=== PATIENT | female | born 1950 | race Caucasian/White ===

== ENCOUNTER → 2024-04-23 10:03 | Outpatient (REF) | payer OTHER, SELFPAY | LOC: HWRCS 10:03 | PROVIDERS: ATTENDING PHYSICIAN Internal Medicine Cardiovascular Disease; FAMILY PHYSICIAN Family Medicine | DX: I50.20 Unspecified systolic (congestive) heart failure (principal) | CPT/HCPCS: 93306 ==

== ENCOUNTER → 2024-09-28 09:04 | Outpatient (REF) | payer OTHER, SELFPAY | LOC: HWRCS 09:04 | PROVIDERS: ATTENDING PHYSICIAN Nuclear Medicine Nuclear Cardiology; FAMILY PHYSICIAN Family Medicine | DX: I50.20 Unspecified systolic (congestive) heart failure (principal); I42.8 Other cardiomyopathies | CPT/HCPCS: 93306 ==

== ENCOUNTER 2024-12-12 20:45 | Inpatient (IN) | payer OTHER, SELFPAY ==
[2024-12-12] VITALS (13 sets, daily range): BP systolic 104–129; BP diastolic 78–102; BMI 27.9; BMI 28.7
[2024-12-12] MEDS: CARDIZEM 15 MG IV (18:15)
--- NOTE | 2024-12-12 18:15 | ED.GENMED ---
History of Present Illness
General
Chief Complaint: Breathing Problem
Source: patient
Time Seen by Provider: 12/12/24 18:03
History of Present Illness
History of Present Illness:
74-year-old female presents to the emergency room complaining of shortness of breath, dyspnea on exertion. Patient's been feeling increasing short of breath for the past 2 weeks. She is also noted some swelling in her lower extremities. Patient
was diagnosed with congestive heart failure in August 2023. She is concerned that her heart failure is acting up again. Patient denies chest pain or pressure. She denies any sense of a tachycardic rhythm. No fever or chills.
Past History
Past History
ED Past Medical History: Other (Hemochromatosis)
ED Past Surgical History: Other (Breast biopsy)
Social History
Tobacco: Non-smoker
Phy Exam
Physical Exam
Physical Exam:
General: Awake, Alert, Oriented X3. No acute distress.
Vitals: Tachycardic
Head: Atraumatic
Eyes: Pupils equal, EOMI
Throat: Airway intact, no exudates
Neck: Trachea midline
Lungs: Equal breath sounds bilaterally
Heart: Regular rate, no murmurs
Abd: Soft, Nontender, No pulsatile mass
Neuro: Nonfocal
Skin: Warm, dry, no rash
Extremities: pulses equal b/l, 1-2+ edema
Scores
Heart Failure Risk
Heart Failure Risk Score: Yes
History of Stroke or TIA: No
History of intubation for respiratory distress: No
Heart rate on ED arrival >/= 110: Yes
SaO2 <90% on arrival on room air: No
HR >/=110 during 3min walk test (or too ill to perform test): Yes
ECG has acute ischemic changes: No
Urea >/=12mmol/L (BUN 33.6mg/dL): No
Serum CO2>/=35mmol/L: No
Troponin I or T elevated to TN Level (0.4mg/dL): No
NT-proBNP >/=5,000ng/L (5,000pg/ml): Yes
HF Risk Score: 3
Admission Status: HIGH RISK 15.9% Consider SNF treatment or admission to hospital
Course
Orders/Labs/Results
Orders:
Orders
12/12/24 Dinner
Cholesterol Lowering
At Your Request: Full Participation
Does patient need a safe tray?: No
Fluid Restriction: 1500 mL/day (50 oz)
Cholesterol Lowering: Sodium, 2 Gram
12/12/24 17:40
Electrocardiogram (*1) Urgent
Reason for Study: Chest Pain
EKG- Treatment ONCE
12/12/24 18:08
Diltiazem 125 mg/125 ml Nss [Cardizem] 125 mg in 125 ml .ROUTE .STK-MED
Diltiazem HCl [Cardizem] 25 mg .ROUTE .STK-MED ONE
12/12/24 18:12
Diltiazem 125 mg/125 ml Nss [Cardizem] 125 mg in 125 ml IV NOW
Initial dose in mg/hr, then titrate:: 5
Titrate to keep:: Heart rate 80-100 bpm
Titrate by mg/hr:: 5 mg/hr
Frequency of titrations (minutes):: 15
Maximum dose in mg/hr:: 15
Diltiazem HCl [Cardizem] 15 mg IV NOW STA
12/12/24 18:13
Cardiac Monitoring- Treatment ONCE
CR Chest Portable - 1 View Urgent
Comment:
Reason For Exam: shortness of breath
Reason Study Needs to be Portable: Unable to Transport
12/12/24 18:20
Basic Metabolic Panel Urgent
Complete Blood Count/With Diff Urgent
NT-proBNP Urgent
12/12/24 18:55
Furosemide [Lasix] 40 mg IV NOW STA
12/12/24 20:12
Admit/Transfer Patient As Directed
Co-Sign Provider:
Level of Care: Inpatient admission
Assign to:: IVU
Physician / Group: hospitalist
Diagnosis: AFIB RVR
Reason for Hospitalization: AFIB RVR, heart failure
Expected length of stay greater than two midnights?: Yes
ELOS- Estimated Length of Stay in days: 2
I certify the patient meets the requirements for IP care: Yes
Code Status As Directed
Resuscitation Status: Do not resuscitate
Reached after discussion with pt or family/Healthcare POA: Yes
PRN Pain Medication Management As Directed
May give lesser potent ordered pain med per pt: Yes
preference::
Protocol:: Medication orders for pain may be administered in a
manner that supports deferring to patient preference
when the pt is:
- Requesting an ordered lesser potent pain medication.
Least to most potent pain medications are defined
as: acetaminophen < NSAID < tramadol < opioids
(morphine, oxycodone, hydromorphone).
- Requesting a lesser dose of the same medication IF
ORDERED.
- Requesting a less intrusive route of administration
if both routes are prescribed by the provider (PO <
IV).
12/12/24 20:13
DNR Bracelet Application ONCE
12/12/24 22:14
Acetaminophen [Tylenol] 650 mg PO Q6HPRN PRN
Diltiazem 125 mg/125 ml Nss [Cardizem] 125 mg in 125 ml IV PER PROTOCOL
Currently infusing. Continue current dose and titrate:: Yes
Titrate to keep:: Heart rate 80-100 bpm
Titrate by mg/hr:: 5 mg/hr
Frequency of titrations (minutes):: 15
Maximum dose in mg/hr:: 15
12/12/24 22:14
Echo 2D MMode Color/Doppler Routine
Reason for Study: heart failure
CARDIOLOGY CONSULT Routine
Consulting Provider: Colin Landaverde
Was physician already notified: Yes
Reason for consult: AFIB RVR
HF DIETARY CONSULT Routine
HF EDUCATOR CONSULT Routine
Comment:
Activity As Directed
Activity Level: With Assistance
Intake/ Output As Directed
Frequency: Per unit guidelines
Patient Education As Directed
Type: CHF folder
Comment: give on admission. Document in Interdisciplinary Education record
Sleep Apnea Assessment by RN As Directed
Comment:
Physician Instructions:
Vital Signs As Directed
Frequency: Other
Additional Instructions:: Q12 or per unit guidelines if more frequent.
Weight As Directed
Frequency: Daily
Type of Scale: Standing Scale
Comment: Daily morning weight. If unable to stand, use balanced bed scale.
Weight As Directed
Frequency: Once
Type of Scale: Standing Scale
Comment: Upon Admission. If unable to stand, use balanced bed scale.
Pulse Ox/cont/shift [RESP] Routine
Quantity: 1
Special Instructions: Daily pulse oximetry at rest. If greater than 92% at rest also obtain pulse oximetry
while ambulating as tolerated.
DX Deep Vein Thrombosis Video Routine
12/13/24 00:36
Basic Metabolic Panel IN AM
Cardiovascular Evaluation IN AM
Magnesium IN AM
TSH Reflex To Free T4 IN AM
12/13/24 Breakfast
NPO
Allow oral meds: Yes
Allow clear liquids: Sips of Clears
12/13/24 08:00
Furosemide [Lasix] 40 mg IV DAILY
12/13/24 18:00
Enoxaparin Sodium [Lovenox] 40 mg SC QPM
12/14/24 06:00
Basic Metabolic Panel IN AM
12/15/24 06:00
Basic Metabolic Panel IN AM
Abnormal Lab Results
12/12/24
18:20
WBC 12.1 H 10^3/uL
(4.8-10.8)
MCV 103.9 H fL
(81.0-99.0)
MCH 36.1 H pg
(27.0-31.0)
MPV 12.6 H fL
(7.4-10.4)
Abs Immat Gran (auto) 0.1 H 10^3/uL
(0-0.05)
Absolute Neuts (auto) 9.2 H 10^3/uL
(1.4-6.5)
Absolute Lymphs (auto) 1.1 L 10^3/uL
(1.2-3.4)
Absolute Monos (auto) 1.7 H 10^3/uL
(0.1-0.6)
Immature Gran % 0.6 H %
(0-0.5)
Neutrophils % 76.1 H %
(42.2-75.2)
Lymphocytes % 9.0 L %
(20.5-51.1)
Monocytes % 13.9 H %
(1.7-9.3)
Sodium 131 L mmol/L
(135-145)
Carbon Dioxide 18 L mmol/L
(22-30)
BUN 47 H mg/dl
(7-17)
Glucose 151 H mg/dl
(70-99)
12/12/24 18:20
12/12/24 18:20
Vital Signs
Initial and Last Documented VS:
Initial Vital Signs
Temp Pulse Resp BP Pulse Ox
97.7 F 76 18 124/91 98
12/12/24 17:46 12/12/24 17:46 12/12/24 17:46 12/12/24 17:46 12/12/24 17:46
Last Documented Vital Signs
Temp Pulse Resp BP Pulse Ox
98.2 F 109 20 129/93 95
12/12/24 22:06 12/12/24 23:30 12/12/24 22:06 12/12/24 22:05 12/12/24 22:06
MDM/Problems Addressed
Differential Diagnosis Includes:
CHF exacerbation, symptomatic anemia, dysrhythmia
MDM/Problems Addressed:
Patient presents with increased shortness of breath and peripheral edema. She is found to have a very rapid heart rate in triage and EKG shows atrial fibrillation. Cardizem started. Patient's not anticoagulated and therefore not a candidate for
cardioversion. Discussed the need for anticoagulation with the patient but she is adamant that she will not start anticoagulation. Hopefully cardiology can convince the patient to initiate anticoagulation. Given her history of heart failure with
reduced ejection fraction we will be a bit less aggressive with Cardizem. Patient was given a bolus and will just use a drip to help control heart rate. Case discussed with Dr. Landaverde.
*Radiology
Radiology exam reviewed: preliminary read by ED provider (No significant abnormality noted)
*Pulse Oximetry
Patient hypoxic: no
*EKG
Interpreted by ED Provider?: Yes
Interpretation: abnormal
Heart Rate: 168
Rate: tachycardiac
Rhythm: a-fib
Ischemia: ST depression (Laterally)
*Wet Finisher Wool Interpretation
Rate: tachycardiac
Interpretation: abnormal
Rhythm: a-fib
*Critical Care Note
Total Time (30-74mins, 75-104mins- exclusive of procedures): Not Applicable
Patient Management
Social determinants of health affecting care: Strong social support
Discussion with other providers: Hospitalist
ED Attending Note
-
Portions of this chart may have been created with voice recognition software.� Occasional wrong word or��sound alike� substitutions may have occurred due to the inherent limitations of voice recognition software.
Discharge Plan
Departure
Patient Disposition: Admit
Date of Disposition: 12/12/24
Time of Disposition: 18:55
Presentation/result/management discussed w/ accepting MD/DO: Hospitalist
Condition: Serious
Discharge Problem:
CHF (congestive heart failure), Atrial fibrillation with RVR
Interventions
Interventions:
*Risk Screen - Suicide Last Done: 12/12/24 17:46
*General Assessment Last Done: 12/12/24 18:24
*Neglect/Abuse Screening Last Done: 12/12/24 17:46
ED- Fall Risk Assessment Last Done: 12/12/24 18:24
*ED COVID-19 Vaccine History Last Done: 12/12/24 18:24
*Nursing Disposition Last Done: 12/12/24 21:50
ED- Cardiac Assessment Last Done: 12/12/24 21:06
ED- Pulmonary Assessment Last Done: 12/12/24 21:06
Discharge Date and Time
Discharge Date/Time: 12/12/24 21:50
[2024-12-12] MEDS: CARDIZEM 125 IV (18:17)
[2024-12-12 18:28] LABS: % Basophils 0.3 % (0-2); % Eosinophils 0.1 % (0-6); % Immature Granulocytes 0.6 % (0-0.5); % Monocytes 13.9 % (1.7-9.3); % Neutrophils 76.1 % (42.2-75.2); Absolute Immature Granulocytes 0.1 10^3/uL (0-0.05); Absolute Lymphocytes 1.1 10^3/uL (1.2-3.4); Absolute Monocytes 1.7 10^3/uL (0.1-0.6); Absolute Neutrophils 9.2 10^3/uL (1.4-6.5); Hematocrit 45.7 % (37.0-47.0); Hemoglobin 15.9 g/dL (12.0-16.0); Mean Corp Hgb Conc. 34.8 g/dL (33.0-37.0); Mean Corpuscular Hgb 36.1 pg (27.0-31.0); Mean Corpuscular Volume 103.9 fL (81.0-99.0); Mean Platelet Volume 12.6 fL (7.4-10.4); Nucleated Red Blood Cells % 0 %; Platelet Count 203 10^3/uL (130-400); Red Cell Dist. Width 13.4 % (11.5-14.5); White Blood Cell Count 12.1 10^3/uL (4.8-10.8)
[2024-12-12 18:46] LABS: Blood Urea Nitrogen 47 mg/dl (7-17); Calcium 9.3 mg/dl (8.4-10.2); Carbon Dioxide 18 mmol/L (22-30); Chloride 98 mmol/L (98-107); Estimated Creatinine Clearance 52 ml/min; Glucose 151 mg/dl (70-99); Sodium 131 mmol/L (135-145); eGFR 59.86
[2024-12-12 18:47] LABS: NT-proBNP 5890 pg/ml
[2024-12-12] MEDS: LASIX 40 MG IV (19:23)
--- NOTE | 2024-12-12 19:56 | HPS.HSE ---
Family Physician
-
Family Physician: Sathish Chapman
Chief Complaint
-
Shortness of breath
History of Present Illness
This is a 74-year-old female with past medical history significant for CHF with depressed EF, last echo around 30 to 35% who presents to the emergency department with approximately 10 days of worsening dyspnea on exertion and shortness of breath.
Patient reports that she follows with cardiology and last saw them in November 27. At that time everything appeared to be okay. However over the last 10 days she is reported that she did have mild increasing ankle edema, she said that weight was
stable but she has been having dyspnea on exertion and shortness of breath. Initially she thought that this may be related to some more fluid congestion. She took 40 mg of Lasix yesterday without more significant improvement. She was found to
have rapid atrial fibrillation in the ED. Patient denies any palpitations, racing heart, lightheadedness or dizziness.
She reported that she been instructed to take the low-dose Coreg but she stopped taking that since November 18. She said that the Coreg resulted in her heart rate that dipped to the 40s and ranges between 50-60. She states this makes her feel
unwell and she decided to discontinue the Coreg.
Patient denies any fevers or chills. She denies any cough. She denies any sick contacts.
In the emergency department she was afebrile with a temp of nine 7.7, the time I saw her blood pressure was 110/83 with a pulse of 140 she was satting 98% on room air. ECG showed atrial fibrillation at a rate of 168 with occasional PVCs. No acute
ischemia. BNP was elevated at 5800. Chest x-ray shows small right pleural effusion with some atelectasis. CBC was mostly unremarkable with a hemoglobin of 16, sodium was 131 BUN was elevated at 47 with a creatinine of 1.0. Potassium is pending.
Medical History
Past Medical History
Past Medical History: Reports CHF (Heart failure with reduced EF) and Other (Hemochromatosis)
Past Surgical History: Reports Other (Breast biopsy)
Social History
Tobacco: Former Smoker
Alcohol: Daily (2 glasses of wine)
Drug: None
Personal: Single
Living: Alone
Employment: Retired
Family History
Family History: Not pertinent
Allergies / Home Medications
Allergies reflects when Allergies were last updated in [facility].
Home Medications with original date entered in [facility]
Allergy/Medication List:
Allergies
Allergy/AdvReac Type Severity Reaction Status Date / Time
Tetracyclines Allergy Mild Rash Verified 12/12/24 17:46
Home Medications
furosemide 20 mg tablet 20 mg PO DAILY 30 days #30 tabs 08/27/23
coenzyme Q10 100 mg capsule (CoQ-10) 100 mg PO DAILY 12/12/24
furosemide 20 mg tablet 20 mg PO DAILYPRN PRN swelling 12/12/24
therapeutic multivitamin 1 tab PO DAILY 12/12/24
vitamin B complex 1 tab PO DAILY 12/12/24
Review of Systems
-
History Source: Patient
Constitutional: Reports No Symptoms
EENT: Reports No Symptoms
Respiratory: Reports Trouble Breathing
Cardiac: Reports No Symptoms
Abdomen/GI: Reports No Symptoms
: Reports No Symptoms
Musculoskeletal: Reports No Symptoms
Skin: Reports No Symptoms
Neurological: Reports No Symptoms
Endocrine: Reports No Symptoms
Hematologic/Lymphatic: Reports No Symptoms
Psych: Reports No Symptoms
Physical Exam
Vital Signs
Vital Signs
Temp Pulse Resp BP Pulse Ox
97.7 F 146 34 110/83 98
12/12/24 17:46 12/12/24 19:23 12/12/24 19:01 12/12/24 19:23 12/12/24 19:01
Physical Exam
General: Well Developed, Well Nourished, Comfortable and Conversant
HEENT: NormoCephalic, Anicteric, Moist mucous membranes, Atraumatic and PERRLA
Respiratory: Clear
Cardiac: S1/S2, Irregular Rhythm and Tachycardia
Breast: Deferred by me
GI: Soft, Non Tender, Non Distended and Normal Bowel Sounds
Rectal: Deferred by Provider
Genito-urinary: Deferred by me
Musculoskeletal: No Clubbing, No Cyanosis, Edema, Left Lower Extremity (1+) and Edema, Right Lower Extremity (1+)
Skin: Warm
Neuro: AO x 3 and Nonfocal/grossly intact
Hematologic/Lymphatic: No Lymphadenopathy
Psych: Calm
Laboratory Results
-
12/12/24 18:20
12/12/24 18:20
Data Reviewed
-
Diagnostic Radiology: Image Personally Visualized and interpreted and Report Reviewed by me
Medical Tests (Nuc Med, Echo, EKG etc): Image Personally Visualized and interpreted
Old Records: Reviewed
Impression/Plan
-
IMPRESSION:
74 y.o female with h/o CHF with reduced EF (s/p cath 2022 with NICM) and presenting with SOB x 10 days found to be in AFIB RVR with some CHF exacerbation.
PLAN:
1. New onset AFIB RVR - Rates initially in the 160s, on dilt gtt, now in the 130s. HD stable. Possibly due to stopping coreg.
- admit to ivu
- continue diltiazem for now but ideally needs beta blockade
- patient amenable to metoprolol succinate which can be started tomorrow
- possibly will need cardioversion in am, NPO after midnight
- [id number] = 3, should be on AC. Eliquis 5 bid recommended. Patient refused AC tonight. To discuss w/ cardiology
- check tsh Ft4
- cardiology consult to CBC
2. CHF exacerbation - Last EF 30 - 35% in september. Moderate exacerbation with mild volume overload.
- lasix 40mg iv daily for now
- GDMT with metop succinate and if BP allows ARNI + SGLT II inibition per cards and patient compliance
- daily weights and i/os
- fluid restriction
DVT PPX - lovenox sq pending initiation of AC
Code Status - DNR
--- NOTE | 2024-12-12 23:10 | PTCARENOTE ---
Received patient from ED @ 2200. Patient awake, oriented x3. Ambulated from stretcher to bed. Cardizem drip running through right AC @ 15 mg/hr. BP 129/93, Afib 150-110s, 95% on room air. Discussed plan of care for evening. Patient verbalized
understanding. Call santana within reach.
--- NOTE | 2024-12-12 23:12 | PTCARENOTE ---
During admission questions, patient had a 23 beat run of We[employer]. Patient was asymptomatic and talking during the run. Informed Kimi Rodas NP.
[2024-12-13] VITALS (7 sets, daily range): BP systolic 92–104; BP diastolic 58–78; BMI 28.5
[2024-12-13 00:58] LABS: Blood Urea Nitrogen 43 mg/dl (7-17); Calcium 8.9 mg/dl (8.4-10.2); Carbon Dioxide 19 mmol/L (22-30); Chloride 101 mmol/L (98-107); Estimated Creatinine Clearance 58 ml/min; Glucose 116 mg/dl (70-99); HDL Cholesterol 25 mg/dl; LDL Cholesterol, Calculated 120 mg/dl; Magnesium 2.2 mg/dl (1.6-2.3); Sodium 134 mmol/L (135-145); Total Cholesterol 168 mg/dl (50-199); Triglyceride 115 mg/dl (10-149); Very Low Density Lipoprotein 23 mg/dl (0-30); eGFR > 60.00
[2024-12-13 01:28] LABS: TSH Reflex To Free T4 2.79 uIU/ml (0.47-4.68)
[2024-12-13] MEDS: CARDIZEM 125 IV ×3 (02:42→18:09)
[2024-12-13] MEDS: LASIX 40 MG IV (09:31)
[2024-12-13] MEDS: FLUSH (NSS) 1 FLUSH IV (09:34)
--- NOTE | 2024-12-13 09:55 | CON.CAR ---
Consultation
Consultation Request
Date/Time Consultation Requested: December 13, 2024
Date/Time Consultation Performed: December 13, 2024
Requesting Provider: Hospitalist
Performing Provider: Dr. Colin Landaverde
Reason for Consultation: New onset atrial fibrillation with rapid rate and decomp HFrEF
Medical History
-
Chief Complaint: Shortness of breath and palpitations
History of Present Illness:
Primary care provider is Sathish Chapman
Primary band head saw operator is Dr Thompson Stewart (previously followed with [facility] Cardiology)
Her medical history is significant for heart failure with reduced ejection fraction, LVEF 30 to 35%, she presented to the emergency department with approximately 10 days of worsening dyspnea on exertion and shortness of breath. She presented on
December 12, 2024.
In the emergency department she is found to be in atrial fibrillation with rapid ventricular rates with a sensation of heart racing, dizziness at times and marked shortness of breath.
On presentation to the emergency department blood pressure is 110/83, heart rate 140 bpm and room air pulse ox is 98%
Electrocardiogram finds atrial fibrillation with a rapid ventricular rate of 168 bpm and occasional PVC as well as nonspecific ST and T wave abnormalities laterally. When compared to EKG of August 23, 2023 atrial fibrillation has replaced sinus
rhythm
BNP was elevated at 5800.
Chest x-ray shows small right pleural effusion with some atelectasis.
Cardiology is consulted for new diagnosis of atrial fibrillation which is also complicated by decompensated heart failure with reduced ejection fraction.
Past medical history:
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
Coronary angiography August 23, 2023 finds severe LV dysfunction with ejection fraction 30-35% and no significant coronary artery disease
Echocardiogram September 2024 finds LVEF 30 to 35% global hypokinesis, moderate mitral regurgitation and moderate tricuspid regurgitation
Moderate marked regurgitation
Moderate tricuspid regurgitation
Medical noncompliance
(Has refused carvedilol as well as Toprol-XL, has also refused Entresto)
Hemochromatosis
Dyslipidemia
Social History
Tobacco: Smoker (Quit in 1992)
Alcohol: Daily (2 glasses of wine daily)
Drug: None
Personal: Single
Living: Alone
Employment: Retired
Family History
Family History: Reviewed & Not Pertinent and Other (There is no family history of premature coronary artery disease)
Allergies / Home Medications
Allergy/AdvReac Type Severity Reaction Status Date / Time
Tetracyclines Allergy Mild Rash Verified 12/12/24 17:46
�Medication �Instructions �Recorded �Confirmed �Type
furosemide 20 mg tablet 20 mg PO DAILY 30 days #30 tabs 08/27/23 12/12/24 Rx
coenzyme Q10 100 mg capsule 100 mg PO DAILY 12/12/24 12/12/24 History
(CoQ-10)
furosemide 20 mg tablet 20 mg PO DAILYPRN PRN swelling 12/12/24 12/12/24 History
therapeutic multivitamin 1 tab PO DAILY Supplement 12/12/24 12/12/24 History
vitamin B complex 1 tab PO DAILY Supplement 12/12/24 12/12/24 History
Review of Systems
-
History Source: Patient
Constitutional: No Symptoms
EENT: No Symptoms
Respiratory: Trouble Breathing
Cardiac: Palpitations
Abdomen/GI: No Symptoms
: No Symptoms
Musculoskeletal: No Symptoms
Skin: No Symptoms
Neurological: Dizzy
Endocrine: No Symptoms
Hematologic/Lymphatic: No Symptoms
Physical Exam
Vital Signs
Temp Pulse Resp BP Pulse Ox
98.4 F 121 16 102/63 97
12/13/24 06:24 12/13/24 09:31 12/13/24 06:24 12/13/24 09:31 12/13/24 06:24
Lab Results
12/12/24 18:20
12/13/24 00:36
[id number] Pept 5890 pg/ml 12/12/24 18:20
Physical Exam
General: Well Developed, Well Nourished, No Apparent Distress and Comfortable
HEENT: Normocephalic, Anicteric and Moist Mucous Membranes
Respiratory: Clear and Non Labored Respirations
Cardiac: S1/S2 and Irregular Rhythm (TACHYACRDIC)
Breast: Deferred by me
GI: Soft, Non Tender, Non Distended and Normal Bowel Sounds
Rectal: Deferred by Provider
Musculoskeletal: No Clubbing, No Cyanosis and Edema (+1 pretibial edema bilaterally)
Skin: Warm
Neuro: Awake, Alert, Oriented, AO x 3 and No Motor Deficits
Psych: Calm
Impression / Plan
-
Assessment:
Atrial fibrillation with rapid ventricular rates, atrial fibrillation is a new diagnosis
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
Coronary angiography August 23, 2023 finds severe LV dysfunction with ejection fraction 30-35% and no significant coronary artery disease
Echocardiogram September 2024 finds LVEF 30 to 35% global hypokinesis, moderate mitral regurgitation and moderate tricuspid regurgitation
Moderate marked regurgitation
Moderate tricuspid regurgitation
Medical noncompliance
(Has refused carvedilol as well as Toprol-XL, has also refused Entresto)
Hemochromatosis
Dyslipidemia
Recommendations:
Atrial fibrillation
This is a new diagnosis for her
Rapid ventricular rates on presentation
Associated with decompensated heart failure with reduced ejection fraction on presentation
TSH is normal at 2.79
CHADSVASc = 4 (CHF, Age, F)
I had a lengthy discussion with her regarding the importance of medical compliance with recommended medical therapy.
-She now agrees to initiate oral anticoagulation for atrial fibrillation related thromboembolic risk reduction and she agrees to reattempt beta-chapincito therapy (refuses Coreg but except Toprol)
Will initiate Eliquis 5 mg twice daily
Will initiate Toprol XL 25 mg p.o. twice daily and attempt to wean IV Cardizem for rate control
Heart failure with reduced ejection fraction
Etiology is noninfarct cardiomyopathy
Coronary angiography August 23, 2023 finds severe LV dysfunction with ejection fraction 30-35% and no significant coronary artery disease
Echocardiogram September 2024 finds LVEF 30 to 35% global hypokinesis, moderate mitral regurgitation and moderate tricuspid regurgitation
Moderate marked regurgitation
Moderate tricuspid regurgitation
I had a lengthy discussion with her regarding the importance of medical compliance with recommended medical therapy.
Initiating Toprol-XL 25 mg p.o. twice daily, she refuses carvedilol
She refuses Entresto but excepts an attempt at lisinopril. Will initiate lisinopril 5 mg daily
Eventual consideration to add aldosterone antagonist
Medical noncompliance
She has refused multiple attempts at medical therapy as noted above but today she reports she will be compliant with recommendations.
Hemochromatosis
Dyslipidemia
Total cholesterol is 168, LDL cholesterol is 120, HDL cholesterol is 25, triglycerides are 115
Discussed with nursing
Total time 80 min
Data Reviewed
-
EKG: Tracing Personally Visualized and interpreted
Radiology: Image Personally Visualized and interpreted
Medical Tests (Nuc Med, Echo etc): Report Reviewed by me
Labs: Labs Reviewed by me
Old Records: Reviewed
--- NOTE | 2024-12-13 10:20 | W.PN.HOSP.TC ---
Today's Communication/Plan
-
NPO post MN if CRISTIAN CV planned
Assessment / Plan
Assessment / Plan
pt is a 74 year old female
New onset AFIB RVR--likely from stopping her coreg (self stopping) due to making her tired with low heart rates-- now in rapid afib on cardizem drip--apprec cards--pt refusing anticoagulation despite myself telling her about the risk of stroke--will
defer to cards CRISTIAN with CV christ if not anticoagulated (unclear how long she truly has been in this because she is not sure if she feels it)--TSH WNL
acute reduced EF CHF exacerbation--last echo 09/2024 showed EF 30-35%--agree with IV lasix, goal directed therapy if pt will take--daily I/Os--2gm sodium diet with fluid restriction to 48 oz/day
DVT proph
Code Status - DNR
Anticipated Discharge: 24 - 48 hours
Subjective/Interval History
-
Date of Service: December 13, 2024
pt SOB and tired
Objective Data
-
Labs:
Laboratory Results
12/13/24
00:36
Sodium 134 L
Potassium 4.0
Chloride 101
Carbon Dioxide 19 L
BUN 43 H
Creatinine 0.9
Glucose 116 H
Calcium 8.9
Vital Signs:
max temp for 24 hours
12/13/24
06:24
Temp 98.4 F
Vital Signs
Temp Pulse Resp BP Pulse Ox
98.4 F 121 16 102/63 97
12/13/24 06:24 12/13/24 09:31 12/13/24 06:24 12/13/24 09:31 12/13/24 06:24
Review of Systems
-
All other systems: Reviewed and negative
Physical Exam
-
General: Well Developed, Well Nourished and No Apparent Distress
HEENT: Normocephalic and Atraumatic
Respiratory: Clear to Auscultation; Negative Wheezes or Rhonchi
Cardiac: Irregular Rhythm and Tachycardic
GI: Soft, Nontender, Nondistended and Normal Bowel Sounds
Musculoskeletal: No Clubbing, No Cyanosis and No Edema
Neuro: Awake
Psych: Calm
[2024-12-13] MEDS: TOPROL XL 25 MG PO ×2 (11:40→23:26)
[2024-12-13] MEDS: ZESTRIL 5 MG PO (11:41)
--- NOTE | 2024-12-13 12:34 | PTCARENOTE ---
HR remains in the 100's, unable to wean IV cardizem gtt. as per ordered.
--- NOTE | 2024-12-13 12:52 | PTCARENOTE ---
Received patient this am in bed, monitor on, Afib, VSS. IV Cardizem @15cc/hr. Dr. Scanlon and Dr. Landaverde in to see patient. patient has agreed to take Eliquis, will start tonight as ordered. will start to wean off IV Cardizem as per Dr.
Akhil for HR <90. at present unable to titrate due to HR in the 100's.
--- NOTE | 2024-12-13 19:53 | PTCARENOTE ---
Assumed care of pt at 1900. Pt in Afib- HR 109. Cardizem remains at 15mg/hr. Pt BP stable. Instructed pt to ring for assistance.
[2024-12-13] MEDS: ELIQUIS 5 MG PO (22:12)
--- NOTE | 2024-12-13 22:21 | PTCARENOTE ---
TT sent to MIKE Rodas regarding pt BP of 92/58. Pt due for toprol XL. Advised to recheck BP in one hour.
[2024-12-14] VITALS (10 sets, daily range): BP systolic 94–118; BP diastolic 52–89; BMI 28.4
[2024-12-14 04:31] LABS: Hematocrit 39.4 % (37.0-47.0); Hemoglobin 14.3 g/dL (12.0-16.0); Mean Corp Hgb Conc. 36.3 g/dL (33.0-37.0); Mean Corpuscular Hgb 36.2 pg (27.0-31.0); Mean Corpuscular Volume 99.7 fL (81.0-99.0); Mean Platelet Volume 12.3 fL (7.4-10.4); Platelet Count 139 10^3/uL (130-400); Red Blood Cell Count 3.95 10^6/uL (4.20-5.40); Red Cell Dist. Width 13.2 % (11.5-14.5); White Blood Cell Count 9.7 10^3/uL (4.8-10.8)
[2024-12-14 05:05] LABS: Blood Urea Nitrogen 34 mg/dl (7-17); Calcium 8.5 mg/dl (8.4-10.2); Carbon Dioxide 19 mmol/L (22-30); Chloride 102 mmol/L (98-107); Estimated Creatinine Clearance 75 ml/min; Glucose 97 mg/dl (70-99); Magnesium 2.3 mg/dl (1.6-2.3); Potassium 3.5 mmol/L (3.5-5.1); Sodium 131 mmol/L (135-145); eGFR > 60.00
[2024-12-14] MEDS: CARDIZEM 125 IV ×2 (06:09→14:30)
--- NOTE | 2024-12-14 08:34 | W.PN.CARDCBS ---
Addendum entered and electronically signed by Thompson Stewart DO 12/14/24 12:09:
I saw and examined the patient.
The Ict Developer's note was reviewed and I agree with the note.
Comment:
Plan:
Cont IV diuresis and increase to lasix 40 mg IV BID.
Monitor wt and Is and Os and daily wts.
She declines Coreg
She decline Entresto but was agreeable to Lisinopril.
Check echo to reeval EF
Increase Toprol to 50 mg BID and wean off IV Cardizem
She is agreeable to Eliquis.
Consider outpt cardioversion after at least 4 weeks of Eliquis
She has a long hx of noncompliance and would want to make sure that she is tolerating her medical regimen prior to cardioversion.
HF teaching
She was appreciative.
Original Note:
Today's Communication / Plan
-
-uptitrate Toprol for rate control
-wean off Cardizem
-cont IV diuresis
Impression / Plan
-
Assessment:
Atrial fibrillation with rapid ventricular rates, atrial fibrillation is a new diagnosis
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
Coronary angiography August 23, 2023 finds severe LV dysfunction with ejection fraction 30-35% and no significant coronary artery disease
Echocardiogram September 2024 finds LVEF 30 to 35% global hypokinesis, moderate mitral regurgitation and moderate tricuspid regurgitation
Moderate marked regurgitation
Moderate tricuspid regurgitation
Medical noncompliance
(Has refused carvedilol as well as Toprol-XL, has also refused Entresto)
Hemochromatosis
Dyslipidemia
Recommendations:
Atrial fibrillation
This is a new diagnosis for her
Rapid ventricular rates on presentation, 160s.
telemetry 12/14/2024 personally reviewed: afib 100-120s
Associated with decompensated heart failure with reduced ejection fraction on presentation
TSH is normal at 2.79
CHADSVASc = 4 (CHF, Age, F)
multiple discussions with her regarding the importance of medical compliance with recommended medical therapy.
-She agrees to initiate oral anticoagulation for atrial fibrillation related thromboembolic risk reduction and she agrees to reattempt beta-chapincito therapy (refuses Coreg but will try Toprol)
-cont Eliquis 5 mg twice daily
-increase Toprol XL 50 mg p.o. twice daily and attempt to wean IV Cardizem for rate control-I ordered toprol
-would not consider a cardioversion unless we are confident that she would be compliant with taking Eliqius for at least 4 weeks post cardioversion.
Heart failure with reduced ejection fraction
Etiology is noninfarct cardiomyopathy
Coronary angiography August 23, 2023 finds severe LV dysfunction with ejection fraction 30-35% and no significant coronary artery disease
Echocardiogram September 2024 finds LVEF 30 to 35% global hypokinesis, moderate mitral regurgitation and moderate tricuspid regurgitation
Moderate marked regurgitation
Moderate tricuspid regurgitation
Initiated Toprol-XL yesterday 12/13/2024. Uptitrating for better rate control. Declines Coreg
She refuses Entresto but accepts an attempt at lisinopril. On lisinopril 5 mg daily
Eventual consideration to add aldosterone antagonist
continue IV diuresis, no change in wt overnight
K 3.5 - replete with KCl 20 meq
Na 131. Has ranged 131-134 since admission
Medical noncompliance
She has refused multiple attempts at medical therapy as noted above but today she reports she will be compliant with recommendations.
Hemochromatosis
Dyslipidemia
Total cholesterol is 168, LDL cholesterol is 120, HDL cholesterol is 25, triglycerides are 115
Discussed with nursing
Total time 40 min
Progress Note - Paper Rewinder
Subjective
Date of Service: December 14, 2024
-feels tired, achy
-no palps, SOB, CP
Objective
Labs:
12/14/24 04:05
12/14/24 04:05
Labs
Hgb 14.3 g/dL (12.0-16.0) 12/14/24 04:05
Hct 39.4 % (37.0-47.0) 12/14/24 04:05
Plt Count 139 10^3/uL (130-400) D 12/14/24 04:05
Sodium 131 mmol/L (135-145) L 12/14/24 04:05
Potassium 3.5 mmol/L (3.5-5.1) 12/14/24 04:05
BUN 34 mg/dl (7-17) H 12/14/24 04:05
Creatinine 0.7 mg/dL (0.6-1.0) 12/14/24 04:05
Glucose 97 mg/dl (70-99) 12/14/24 04:05
Vital Signs and I&O:
Vital Signs
Temp Pulse Resp BP Pulse Ox
98.7 F 119 16 118/78 96
12/14/24 07:39 12/14/24 07:39 12/14/24 07:39 12/14/24 07:39 12/14/24 07:39
Vital Signs
Temp Pulse Resp BP Pulse Ox
98.7 F 119 16 118/78 96
12/14/24 07:39 12/14/24 07:39 12/14/24 07:39 12/14/24 07:39 12/14/24 07:39
Intake & Output
12/12/24 12/13/24 12/14/24 12/15/24
06:59 06:59 06:59 06:59
Intake Total 180 / 180
Balance 180 / 180
Physical Exam
Physical Exam
GEN: No distress, awake, Ox3
HEENT: supple, anicteric, mmm
LUNGS: CTA, no wheezes/rales
CV: irreg, irreg , 1/6 systolic murmur apex
ABD: soft, BS+, NT/ND
EXT: trace edema B/L LEs
NEURO: Gross non-focal
SKIN: No rash
[2024-12-14] MEDS: ELIQUIS 5 MG PO ×2 (08:57→20:16)
[2024-12-14] MEDS: ZESTRIL 5 MG PO (08:57)
[2024-12-14] MEDS: TOPROL XL 25 MG PO (08:57)
[2024-12-14] MEDS: LASIX 40 MG IV ×2 (08:58→16:34)
[2024-12-14] MEDS: KCL 20 MEQ PO (10:24)
--- NOTE | 2024-12-14 10:31 | CM ---
Reviewed chart. Met with Mrs. Silva to review discharge plans. She states prior to admission she resides alone in a third floor apartment with an elevator. She resides in a [place] al[place] community. She states prior to admission she was
independent with ambulation and adls. She states she does not have any DME in the home. She states she has a prescription plan and uses a [facility]. Medical work-up in progress. The discharge plan is to return home when medically stable.
--- NOTE | 2024-12-14 10:40 | PTCARENOTE ---
received patient this am, monitor shows Afib, VSS. IV Cardizem @ 10cc/hr infusing without difficulties. K 3.5, supplemented as ordered.
--- NOTE | 2024-12-14 14:44 | W.PN.HOSP.TC ---
Today's Communication/Plan
-
cont diuresis
apprec cards
Assessment / Plan
Assessment / Plan
pt is a 74 year old female
New onset AFIB RVR--likely from stopping her coreg (self stopping) due to making her tired with low heart rates-- now in rapid afib on cardizem drip--apprec cards--after speaking with cardiology, she is agreeable to Elimatteo Toprol XL and
lisinopril- CRISTIAN with CV in 4 weeks now --TSH WNL
acute reduced EF CHF exacerbation (systolic)--last echo 09/2024 showed EF 30-35%--agree with IV lasix, goal directed therapy--daily I/Os--2gm sodium diet with fluid restriction to 48 oz/day
DVT proph
Code Status - DNR
Anticipated Discharge: 24 - 48 hours
Subjective/Interval History
-
Date of Service: December 14, 2024
pt without c/o
Objective Data
-
Labs:
Laboratory Results
12/14/24
04:05
WBC 9.7
Hgb 14.3
Hct 39.4
Plt Count 139 D
Sodium 131 L
Potassium 3.5
Chloride 102
Carbon Dioxide 19 L
BUN 34 H
Creatinine 0.7
Glucose 97
Calcium 8.5
Vital Signs:
max temp for 24 hours
12/14/24
07:39
Temp 98.7 F
Vital Signs
Temp Pulse Resp BP Pulse Ox
98.1 F 107 16 110/78 96
12/14/24 12:44 12/14/24 08:58 12/14/24 12:44 12/14/24 08:58 12/14/24 12:44
I&O
12/13/24 12/14/24 12/15/24
06:59 06:59 06:59
Intake Total 180 / 180
Balance 180 / 180
Review of Systems
-
All other systems: Reviewed and negative
Physical Exam
-
General: Well Developed, Well Nourished and No Apparent Distress
HEENT: Normocephalic and Atraumatic
Respiratory: Clear to Auscultation; Negative Wheezes or Rhonchi
Cardiac: Regular Rhythm and S1/S2; Negative Murmur
GI: Soft, Nontender, Nondistended and Normal Bowel Sounds
Musculoskeletal: No Clubbing and No Cyanosis; Negative No Edema (1+ LE bilateral LE)
Neuro: Awake
[2024-12-14] MEDS: FLUSH (NSS) 1 FLUSH IV (16:36)
[2024-12-14] MEDS: TOPROL XL 50 MG PO (20:16)
[2024-12-15] VITALS (9 sets, daily range): BP systolic 91–113; BP diastolic 63–97; BMI 28.1
--- NOTE | 2024-12-15 05:06 | PTCARENOTE ---
Rec'd pt at change of shift. Pt in Afib on TELE monitor with HR 100-110's, VSS, and AAO*3. Pt denies having any pain or discomfort. Pt with Cardizem infusing at 10mg/10mL per hour. Pt currently resting with call santana in reach. Plan of care
ongoing.
[2024-12-15 05:27] LABS: Blood Urea Nitrogen 23 mg/dl (7-17); Calcium 8.3 mg/dl (8.4-10.2); Carbon Dioxide 26 mmol/L (22-30); Chloride 97 mmol/L (98-107); Estimated Creatinine Clearance 74 ml/min; Glucose 103 mg/dl (70-99); Magnesium 1.9 mg/dl (1.6-2.3); Sodium 132 mmol/L (135-145); eGFR > 60.00
[2024-12-15] MEDS: ZESTRIL 5 MG PO (08:06)
[2024-12-15] MEDS: ELIQUIS 5 MG PO ×2 (08:07→20:13)
[2024-12-15] MEDS: TOPROL XL 50 MG PO ×2 (08:07→20:13)
[2024-12-15] MEDS: LASIX 40 MG IV ×2 (08:07→15:58)
[2024-12-15] MEDS: FLUSH (NSS) 1 FLUSH IV ×2 (08:08→15:59)
--- NOTE | 2024-12-15 10:46 | PTCARENOTE ---
received patient this am, monitor shows Afib , HR 130's, Nevin SHARP aware. VSS. patient voices no complaints. discussed plan of care.
--- NOTE | 2024-12-15 10:52 | W.PN.CARDCBS ---
Addendum entered and electronically signed by Josue Perez MD 12/15/24 15:18:
I saw and examined the patient.
The Code Enforcement Supervisor's note was reviewed and I agree with the note.
Comment: Briefly, 74-year-old woman past medical history of heart failure with reduced ejection fraction, nonischemic cardiomyopathy, severe mitral regurgitation who presents in atrial fibrillation with rapid ventricular response (this is a new
diagnosis) and decompensated heart failure
By echo this admission left ventricular function is severely reduced with an LVEF of 15%
Agree with continuing IV diuresis to optimize her volume status
Follow daily weights and renal function/electrolytes
Remains in atrial fibrillation with rates difficult to control
Continue metoprolol for goal heart rate less than 110 bpm, will uptitrate cautiously given acute heart failure
Consider adding amiodarone for additional rate control
Would likely benefit from CRISTIAN/direct-current cardioversion prior to discharge
Continue Eliquis for cardioembolic prophylaxis
Rest per Nevin Maher
Original Note:
Today's Communication / Plan
-
Continue IV diuresis
Increase Toprol for improved rate control. If remains refractory, would consider addition of antiarrhythmic drug therapy
Given worsened nonischemic cardiomyopathy, suspect will not do well in A-fib. Would favor inpatient CRISTIAN/cardioversion later this week. Patient reports will be compliant with anticoagulation
We will be able to evaluate degree of mitral valve disease with CRISTIAN. May need evaluation for mitral valve intervention
GDMT of CM as able
Impression / Plan
-
Primary Train Clerk: Dr. Stewart
Assessment:
Shortness of breath
Atrial fibrillation with rapid ventricular rates, new diagnosis
Acute HFrEF
Nonischemic cardiomyopathy - no significant CAD by cath 08/23/23
EF by echo previously 30-35%, now 15%
Severe mitral regurgitation
Moderate tricuspid regurgitation
Medical noncompliance
(Has refused carvedilol as well as Entresto)
Hemochromatosis
Dyslipidemia
ECHO 04/23/2024: EF 40 to 45%, mildly dilated LV, stage II diastolic dysfunction, moderate MR, mild TR, mildly elevated PASP, 39 mmHg
ECHO 09/28/24: EF 30 to 35%, global hypokinesis, mild concentric LVH, stage II diastolic dysfunction, at least moderate MR, mild to moderate TR, PAP 50 mmHg
ECHO 12/14/2024: EF 15%, severe global hypokinesis, MAC with severe MR with possible flow reversal in left pulmonary vein, trace AR, severe TR, PAP 28 mmHg, moderately dilated RA
Recommendations:
-Patient presented with shortness of breath found to be in A-fib with RVR as well as with evidence of acute CHF
-A-fib new diagnosis for patient this admission. Possibly MR contributing.
-Remains with evidence of volume overload on examination. Continue IV Lasix 40 mg twice daily. Creatinine stable. Remains with conversational dyspnea and dry cough
-Had ada conversation with patient today regarding her significant cardiac issues including worsening nonischemic cardiomyopathy, heart failure, new A-fib with difficult to control heart rates, and valvular disease. We discussed that her valve
disease, if progressing, could be causing worsening nonischemic cardiomyopathy, heart failure, and A-fib. We discussed if A-fib is due to mitral valve disease, may prove difficult to control with rate control only.
-Have been attempting to rate control patient due to history of noncompliance, however she remains in A-fib with RVR. Will increase Toprol dose to 75 mg twice daily today and follow response. If she remains rapid later today versus in a.m., would
consider addition of antiarrhythmic drug therapy.
-Given worsening cardiomyopathy, suspected in part tachycardia mediated, suspect will not do well in A-fib. Would favor inpatient CRISTIAN/cardioversion not only to restore sinus rhythm, however also to further evaluate mitral valve once diuresed.
Would consider for later this week pending volume status
-Discussed pending severity of mitral valve disease, will need evaluation for mitral valve repair/replacement versus alternative option of MitraClip.
-We discussed importance of compliance with medications and follow-up. Specifically discussed if patient did get cardioverted, would need uninterrupted blood thinner for 1 month. She states that she is agreeable to take this and understands the
risk of stopping this medicine
-She refused Coreg and Entresto. Continue Toprol, lisinopril. Will have case management assess cost to patient of [place]. Currently hypotension limits addition of Aldactone at this time
-Discussed with nursing
Progress Note - Train Clerk
Subjective
Date of Service: December 15, 2024
Reports feels tired. Also reports dry cough and conversational dyspnea. Reports improving lower extremity edema
Objective
Labs:
12/14/24 04:05
12/15/24 04:21
Labs
Hgb 14.3 g/dL (12.0-16.0) 12/14/24 04:05
Hct 39.4 % (37.0-47.0) 12/14/24 04:05
Plt Count 139 10^3/uL (130-400) D 12/14/24 04:05
Sodium 132 mmol/L (135-145) L 12/15/24 04:21
Potassium 4.0 mmol/L (3.5-5.1) 12/15/24 04:21
BUN 23 mg/dl (7-17) H 12/15/24 04:21
Creatinine 0.7 mg/dL (0.6-1.0) 12/15/24 04:21
Glucose 103 mg/dl (70-99) H 12/15/24 04:21
Vital Signs and I&O:
Vital Signs
Temp Pulse Resp BP Pulse Ox
97.8 F 119 18 103/69 96
12/15/24 07:10 12/15/24 10:00 12/15/24 07:10 12/15/24 08:07 12/15/24 07:10
Vital Signs
Temp Pulse Resp BP Pulse Ox
97.8 F 119 18 103/69 96
12/15/24 07:10 12/15/24 10:00 12/15/24 07:10 12/15/24 08:07 12/15/24 07:10
Intake & Output
12/13/24 12/14/24 12/15/24 12/16/24
07:59 07:59 07:59 07:59
Intake Total 180 / 180 600 / 600
Output Total 1000 / 1000 200 / 200
Balance 180 / 180 -400 / -400 -200 / -200
Physical Exam
Physical Exam
GEN: No distress, awake, alert, oriented x3
HEENT: supple, anicteric, mmm, eomi
LUNGS: Few crackles at bases, no wheezes
CV: Irreg irreg, S1/S2, 2/6 murmur
ABD: soft, BS+, NT/ND
EXT: No cyanosis, clubbing. 1+ edema of B/L LE
NEURO: Gross non-focal
SKIN: Warm, pink, dry. No rash
[2024-12-15] MEDS: TOPROL XL 25 MG PO (12:01)
--- NOTE | 2024-12-15 12:34 | W.PN.HOSP.TC ---
Today's Communication/Plan
-
see A/P
Assessment / Plan
Assessment / Plan
A/P:
# New onset AFIB with RVR, likely from stopping her coreg (self stopping) due to coreg making her tired with low heart rates
TSH WNL at 2.79
off cardizem drip, now on Toprol 75 mg BID
Cont Eliquis 5 mg BID
apprec cards
to consider CRISTIAN with CV if rate not controlled
# acute systolic CHF with reduced EF
Echo this admission 12/14: EF 15% visually. Diastolic function indeterminate. Severe mitral regurgitation with possible flow reversal in left pulmonary vein.
Cont IV lasix, now 40 mg BID
daily I/Os, 2gm sodium diet with fluid restriction to 48 oz/day
Lisinopril 5 mg daily added for LINING PARTS SEWER with low EF
DVT proph: Eliquis
Code Status - DNR
Anticipated Discharge: > 48 hours
Subjective/Interval History
-
Date of Service: December 15, 2024
Objective Data
-
Labs:
Laboratory Results
12/15/24
04:21
Sodium 132 L
Potassium 4.0
Chloride 97 L
Carbon Dioxide 26
BUN 23 H
Creatinine 0.7
Glucose 103 H
Calcium 8.3 L
Vital Signs:
Vital Signs
Temp Pulse Resp BP Pulse Ox
36.3 C 138 18 113/97 98
12/15/24 12:00 12/15/24 12:01 12/15/24 12:00 12/15/24 12:01 12/15/24 12:00
I&O
12/14/24 12/15/24 12/16/24
06:59 06:59 06:59
Intake Total 180 / 180 600 / 600
Output Total 1000 / 1000 200 / 200
Balance 180 / 180 -400 / -400 -200 / -200
Review of Systems
-
All other systems: Reviewed and negative
Physical Exam
-
General: Well Developed, Well Nourished, No Apparent Distress, Comfortable and Conversant
HEENT: Normocephalic and Atraumatic
Respiratory: Clear to Auscultation and Non Labored Respirations; Negative Wheezes, Rhonchi or Accessory Resp Muscle Use
Cardiac: S1/S2, Irregular Rhythm and Tachycardic; Negative Murmur
GI: Soft, Nontender, Nondistended and Normal Bowel Sounds
Musculoskeletal: No Clubbing and No Cyanosis
Neuro: Awake and Alert
Psych: Calm and Intact Judgement/Insight
Data Reviewed
-
Medical Tests (Nuc Med, Echo etc): Report Reviewed by me (echo)
Labs: Labs Reviewed by me
--- NOTE | 2024-12-15 15:33 | CM ---
Reviewed chart. Asked to du Farxiga and Eliquis. He co-pay for Farxiga 10 mg once a day would be 440.81 mad Eliquis 5 mg po bid is $409.25. She would have to pay garduno du until she gets to $2000.00 out of pocket. Once she gets to $2000.00 her
medications would be free. Reviewed about with Mrs. Silva. She is agreeable to the co-pay. Prior to admission she resides alone in a third floor apartment with an elevator. Prior to admission she waas independent with ambulation and adls.
She does not have any DME in the home. She hsa a prescription plan and uses [facility]. Medical work-up in progress. The discharge plan is to retrun home when medically stable.
--- NOTE | 2024-12-15 16:38 | W.PN.UPDATE ---
Update Note
Progress Note Update
Patient remains with rapid rates in atrial fibrillation. Discussed with patient starting amiodarone therapy. She remains concerned about the number of medication she is being started on. We discussed the benefit to the medicine she has been
started on thus far (toprol, lisinopril), as well as the medications we hope to start prior to discharge (Farxiga and Aldactone). We discussed that these medications are ideally not lifelong, however are necessary for now. We discussed that she
has multiple significant cardiac conditions, and she expressed understanding of this. We discussed she likely will not be able to tolerate a heart rate of 140 for a prolonged period of time. We discussed need for amiodarone in order to attempt to
re-establish and then maintain sinus rhythm in addition to CRISTIAN/cardioversion. We discussed IF her A-fib, heart failure, cardiomyopathy are all ultimately stemming from her mitral valve disease, recommendation would be for CT surgery eval/mitral
valve intervention. Await results of CRISTIAN. She is agreeable to initiation of amiodarone 400 mg 3 times daily. Follow QTc. Will plan for CRISTIAN/CV tentatively 12/17. d/w nursing.
[2024-12-15] MEDS: PACERONE 400 MG PO ×2 (16:41→22:16)
[2024-12-16] VITALS (11 sets, daily range): BP systolic 83–122; BP diastolic 62–79; BMI 28.1
--- NOTE | 2024-12-16 02:43 | DOWNTIME ---
There was a [employer] Client Glass Inserter Downtime on 12/16/2024 from 0100 to 12/16/2023 at 0205 . Downtime documentation of patient's care, including medication administrations, has been reconciled in the electronic record per guidelines. Refer to the
patient's paper chart under the miscellaneous tab to see printed paper medication records and downtime forms.
[2024-12-16 05:55] LABS: Hematocrit 43.5 % (37.0-47.0); Hemoglobin 15.2 g/dL (12.0-16.0); Mean Corp Hgb Conc. 34.9 g/dL (33.0-37.0); Mean Corpuscular Hgb 36.1 pg (27.0-31.0); Mean Corpuscular Volume 103.3 fL (81.0-99.0); Mean Platelet Volume 11.6 fL (7.4-10.4); Platelet Count 201 10^3/uL (130-400); Red Blood Cell Count 4.21 10^6/uL (4.20-5.40); Red Cell Dist. Width 13.3 % (11.5-14.5)
[2024-12-16 06:28] LABS: Blood Urea Nitrogen 30 mg/dl (7-17); Calcium 8.5 mg/dl (8.4-10.2); Carbon Dioxide 27 mmol/L (22-30); Chloride 96 mmol/L (98-107); Estimated Creatinine Clearance 65 ml/min; Glucose 102 mg/dl (70-99); Potassium 3.3 mmol/L (3.5-5.1); Sodium 133 mmol/L (135-145); eGFR > 60.00
[2024-12-16] MEDS: ELIQUIS 5 MG PO ×2 (07:39→19:34)
[2024-12-16] MEDS: KCL 40 MEQ PO (07:39)
[2024-12-16] MEDS: PACERONE 400 MG PO ×3 (08:25→22:20)
[2024-12-16] MEDS: ZESTRIL PO (08:27)
[2024-12-16] MEDS: TOPROL XL PO (08:27)
--- NOTE | 2024-12-16 08:30 | W.PN.CARDCBS ---
Addendum entered and electronically signed by Josue Perez MD 12/16/24 09:16:
I saw and examined the patient.
The Staff Therapist's note was reviewed and I agree with the note.
Comment: Briefly, 74-year-old woman past medical history of heart failure with reduced ejection fraction, nonischemic cardiomyopathy, severe mitral regurgitation who presents in atrial fibrillation with rapid ventricular response (this is a new
diagnosis) and decompensated heart failure
By echo this admission left ventricular function is severely reduced with an LVEF of 15%
Continue IV diuresis BID to optimize volume status
Follow daily weights and renal function/electrolytes
BP is marginal which limits GDMT
Remains in atrial fibrillation with rates difficult to control
Continue metoprolol for goal heart rate less than 110 bpm, will uptitrate cautiously given acute heart failure
Amiodarone added for additional rate control
Plan for CRISTIAN/direct-current cardioversion tomorrow
Continue Eliquis for cardioembolic prophylaxis
Rest per Nevin Maher
Original Note:
Today's Communication / Plan
-
continue amio, eliquis
attempt to continue toprol with hold parameters
stop lisinopril
attempt to continue IV lasix
compression stockings
replete K
plan for CRISTAIN/CV in AM
Impression / Plan
-
Primary Ear Machine Operator: Dr. Stewart
Assessment:
Shortness of breath
Atrial fibrillation with rapid ventricular rates, new diagnosis
Acute HFrEF
Nonischemic cardiomyopathy - no significant CAD by cath 08/23/23
EF by echo previously 30-35%, now 15%
Severe mitral regurgitation
Moderate tricuspid regurgitation
Medical noncompliance
(Has refused carvedilol as well as Entresto)
Hemochromatosis
Dyslipidemia
ECHO 04/23/2024: EF 40 to 45%, mildly dilated LV, stage II diastolic dysfunction, moderate MR, mild TR, mildly elevated PASP, 39 mmHg
ECHO 09/28/24: EF 30 to 35%, global hypokinesis, mild concentric LVH, stage II diastolic dysfunction, at least moderate MR, mild to moderate TR, PAP 50 mmHg
ECHO 12/14/2024: EF 15%, severe global hypokinesis, MAC with severe MR with possible flow reversal in left pulmonary vein, trace AR, severe TR, PAP 28 mmHg, moderately dilated RA
Recommendations:
-Patient presented with shortness of breath found to be in A-fib with RVR as well as with evidence of acute CHF
-A-fib new diagnosis for patient this admission. MR felt to be contributing.
-Overnight reports improvement in conversational dyspnea and cough, although continues with edema. Currently hypotensive. Would attempt to continue Lasix. Creatinine stable
-replete K
-compression stockings ordered
-Remains in atrial fibrillation with suboptimal response. continue amiodarone loading. Follow QTc
-Continue Eliquis
-Given worsening cardiomyopathy, suspected in part tachycardia mediated, suspect will not do well in A-fib. Plan for CRISTIAN/cardioversion in a.m. We specifically discussed if patient gets cardioverted, would need uninterrupted blood thinner for AT
LEAST 1 month however likely longer. She states that she is agreeable to take the medication and understands the risk of stopping this medicine
-will also evaluate mitral valve at time of CRISTIAN. severe by TTE 12/14
-hypotensive but asymptomatic. attempt to continue toprol, hold parameters placed. stop lisinopril due to hypotension. She refused Coreg and Entresto. Will not add Aldactone due to hypotension. Consider for Farxiga if affordable to patient
-We again discussed importance of compliance with medications moving forward
-Discussed with nursing
Progress Note - Ear Machine Operator
Subjective
Date of Service: December 16, 2024
reports improvement in breathing and cough. reports continued LE edema. denies lightheadedness, dizziness
Objective
Labs:
12/16/24 05:25
12/16/24 05:25
Labs
Hgb 15.2 g/dL (12.0-16.0) 12/16/24 05:25
Hct 43.5 % (37.0-47.0) 12/16/24 05:25
Plt Count 201 10^3/uL (130-400) D 12/16/24 05:25
Sodium 133 mmol/L (135-145) L 12/16/24 05:25
Potassium 3.3 mmol/L (3.5-5.1) L 12/16/24 05:25
BUN 30 mg/dl (7-17) H 12/16/24 05:25
Creatinine 0.8 mg/dL (0.6-1.0) 12/16/24 05:25
Glucose 102 mg/dl (70-99) H 12/16/24 05:25
Vital Signs and I&O:
Vital Signs
Temp Pulse Resp BP Pulse Ox
98 F 134 20 88/63 97
12/16/24 07:06 12/16/24 08:25 12/16/24 07:06 12/16/24 08:25 12/16/24 07:06
Vital Signs
Temp Pulse Resp BP Pulse Ox
98 F 134 20 88/63 97
12/16/24 07:06 12/16/24 08:25 12/16/24 07:06 12/16/24 08:25 12/16/24 07:06
Intake & Output
12/14/24 12/15/24 12/16/24 12/17/24
07:59 07:59 07:59 07:59
Intake Total 180 / 180 600 / 600
Output Total 1000 / 1000 1500 / 1500
Balance 180 / 180 -400 / -400 -1500 / -1500
Physical Exam
Physical Exam
GEN: No distress, awake, alert, oriented x3
HEENT: supple, anicteric, mmm, eomi
LUNGS: Decreased at bases, no wheezes
CV: Irreg irreg, S1/S2, 2/6 murmur
ABD: soft, BS+, NT/ND
EXT: No cyanosis, clubbing. 1+ edema of B/L LE
NEURO: Gross non-focal
SKIN: Warm, pink, dry. No rash
[2024-12-16] MEDS: LASIX IV (08:36)
--- NOTE | 2024-12-16 08:37 | PTCARENOTE ---
Assumed care. BP 83/66, held Toprol, Zestril and IV Lasix. A-Fib HR 120-130's. Patient sitting on side of bed eating denies lightheadedness. B/L +1 pitting leg edema, lungs CTA, occasional dry cough, POX 97% on room air, call santana in reach
--- NOTE | 2024-12-16 09:30 | W.PN.HOSP.TC ---
Addendum entered and electronically signed by Hailey Morales MD 12/16/24 13:32:
I saw and evaluated the patient. I reviewed the resident�s note and agree with findings and plan as documented in the resident�s note.
A/P:
# New onset AFIB with RVR
Pt stopped taking coreg by herself
off cardizem drip, now on Toprol 50 mg BID
Added amiodarone, continue 400 mg 3 times daily
Cont Eliquis 5 mg BID
apprec cards, to consider CRISTIAN with CV if rate not controlled, tentatively planned for 12/17
TSH WNL at 2.79
# acute systolic CHF with reduced EF
Echo this admission 12/14: EF 15% visually. Diastolic function indeterminate. Severe mitral regurgitation with possible flow reversal in left pulmonary vein.
Cont IV lasix 40 mg BID
daily I/Os, 2gm sodium diet with fluid restriction to 48 oz/day
Off Lisinopril with borderline hypotension
DVT proph: Eliquis
Code Status - DNR
Original Note:
Today's Communication/Plan
-
Continue amiodarone
Continue metoprolol
Continue Eliquis
CRISTIAN/cardioversion tomorrow
Assessment / Plan
Assessment / Plan
74-year-old female with past medical history of congestive heart failure admitted for management of A-fib with RVR.
Assessment/plan
# New onset AFIB with RVR
likely due to discontinuing Coreg.
TSH WNL at 2.79
off cardizem drip, now on Toprol 50 mg BID
Started on Eliquis 5 mg BID, continue
Started on amiodarone 400 mg 3 times daily, continue
Monitor QTc
apprec cards
Plan for CRISTIAN tomorrow with CV
N.p.o. from midnight if scheduled for CRISTIAN
# Acute systolic CHF with reduced EF
Echo this admission 12/14: EF 15% visually. Diastolic function indeterminate. Severe mitral regurgitation with possible flow reversal in left pulmonary vein.
Continue IV lasix, 40 mg BID
daily I/Os, 2gm sodium diet with fluid restriction to 48 oz/day
Monitor BMP on Lasix
Replete potassium as needed.
#Hypokalemia
3.3 today
Repleted
Monitor BMP
DVT proph: Eliquis
Code Status - DNR
Anticipated Discharge: 24 - 48 hours
Subjective/Interval History
-
Date of Service: December 16, 2024
Patient does not report any chest pain, palpitations.
Objective Data
-
Labs:
Laboratory Results
12/16/24
05:25
WBC 10.0
Hgb 15.2
Hct 43.5
Plt Count 201 D
Sodium 133 L
Potassium 3.3 L
Chloride 96 L
Carbon Dioxide 27
BUN 30 H
Creatinine 0.8
Glucose 102 H
Calcium 8.5
Vital Signs:
Vital Signs
Temp Pulse Resp BP Pulse Ox
98 F 133 20 88/63 97
12/16/24 07:06 12/16/24 08:36 12/16/24 07:06 12/16/24 08:36 12/16/24 07:06
I&O
12/15/24 12/16/24 12/17/24
06:59 06:59 06:59
Intake Total 600 / 600
Output Total 1000 / 1000 800 / 800 700 / 700
Balance -400 / -400 -800 / -800 -700 / -700
Review of Systems
-
All other systems: Reviewed and negative (As per history)
Physical Exam
-
General: Well Developed, Well Nourished and No Apparent Distress
HEENT: Normocephalic and Atraumatic
Respiratory: Clear to Auscultation
Cardiac: S1/S2, Irregular Rhythm and Tachycardic
GI: Soft, Nontender, Nondistended and Normal Bowel Sounds
Musculoskeletal: Edema, Right Lower Extrem and Edema, Left Lower Extrem
Skin: Warm and Dry
Neuro: Awake, Alert, Oriented and AO x 3
Psych: Calm
[2024-12-16] MEDS: LASIX 40 MG IV (16:11)
[2024-12-16] MEDS: TOPROL XL 50 MG PO (19:34)
[2024-12-16 23:02] LABS: Blood Urea Nitrogen 32 mg/dl (7-17); Calcium 8.7 mg/dl (8.4-10.2); Carbon Dioxide 21 mmol/L (22-30); Chloride 98 mmol/L (98-107); Estimated Creatinine Clearance 58 ml/min; Glucose 124 mg/dl (70-99); Potassium 3.5 mmol/L (3.5-5.1); Sodium 129 mmol/L (135-145); eGFR > 60.00
--- NOTE | 2024-12-16 23:11 | PTCARENOTE ---
Received patient at change of shift. Afib on the monitor. HR in the 120s. Pt had 9 beat run of PVCs, COOK P[employer]LED [employer]AT Sakina Weinberg notified. No complaints from pt at this time, call santana within reach.
[2024-12-17] VITALS (14 sets, daily range): BP systolic 84–117; BP diastolic 60–86; BMI 28.2
[2024-12-17 04:19] LABS: % Basophils 0.5 % (0-2); % Eosinophils 1.1 % (0-6); % Immature Granulocytes 0.6 % (0-0.5); % Lymphocytes 22.7 % (20.5-51.1); % Monocytes 10.2 % (1.7-9.3); % Neutrophils 64.9 % (42.2-75.2); Absolute Eosinophils 0.1 10^3/uL (0-0.7); Absolute Immature Granulocytes 0.1 10^3/uL (0-0.05); Absolute Lymphocytes 1.9 10^3/uL (1.2-3.4); Absolute Monocytes 0.9 10^3/uL (0.1-0.6); Absolute Neutrophils 5.5 10^3/uL (1.4-6.5); Hematocrit 42.2 % (37.0-47.0); Hemoglobin 14.5 g/dL (12.0-16.0); Mean Corp Hgb Conc. 34.4 g/dL (33.0-37.0); Mean Corpuscular Hgb 35.8 pg (27.0-31.0); Mean Corpuscular Volume 104.2 fL (81.0-99.0); Mean Platelet Volume 11.1 fL (7.4-10.4); Nucleated Red Blood Cells % 0 %; Platelet Count 225 10^3/uL (130-400); Red Blood Cell Count 4.05 10^6/uL (4.20-5.40); Red Cell Dist. Width 13.1 % (11.5-14.5); White Blood Cell Count 8.5 10^3/uL (4.8-10.8)
[2024-12-17 04:45] LABS: ALT (SGPT) 145 U/L (0-35); AST (SGOT) 45 U/L (14-36); Alkaline Phosphatase 162 U/L (38-126); Blood Urea Nitrogen 32 mg/dl (7-17); Calcium 8.7 mg/dl (8.4-10.2); Carbon Dioxide 23 mmol/L (22-30); Chloride 99 mmol/L (98-107); Estimated Creatinine Clearance 65 ml/min; Glucose 110 mg/dl (70-99); Potassium 3.3 mmol/L (3.5-5.1); Sodium 131 mmol/L (135-145); Total Bilirubin 0.5 mg/dl (0.2-1.3); Total Protein 5.2 g/dl (6.3-8.2); eGFR > 60.00
--- NOTE | 2024-12-17 07:22 | W.PN.CARDCBS ---
Addendum entered and electronically signed by Amado Culver MD 12/17/24 11:51:
I saw and examined the patient.
The Tower Technician's note was reviewed and I agree with the note.
Comment:
GEN: No distress, awake, Ox3
HEENT: supple, anicteric, mmm
LUNGS: dec BS bilat
CV: Irreg, S1/S2, 3/6 syst LSB, S3+
ABD: soft, BS+, NT/ND
EXT: No edema
NEURO: Gross non-focal
SKIN: No rash
Plan:
CRISTIAN with LA appendage thrombus, EF 10-15% with severe MR
Unable to cardiovert her.
Will pursue a rate control strategy for now. Will D/C Amiodarone for now
Increase Toprol to 75mg po bid. Cont Eliquis
Cont farziga
Would consider adding Dig/Diltiazem/Midodrine of needed for more rate control
Will discuss MV options with Dr Stewart.
She may be too sick for Mitral valve treatments at this point(MitraClip)
INcrease Lasix to 60mg IV bid. Follow Creat. Recheck pro-bnp
Original Note:
Today's Communication / Plan
-
Continue amiodarone loading.
For CRISTIAN/CV today, will assess mitral valve during CRISTIAN
Continue Eliquis 5mg BID and Toprol 50mg daily.
Continue diuresis with IV lasix
Replete K
Start Farxiga
Impression / Plan
-
Primary Asbestos Shingle Roofer: Dr. Stewart
Assessment:
Presented with SOB
Atrial fibrillation with rapid ventricular rates, new diagnosis
Acute HFrEF
Nonischemic cardiomyopathy - no significant CAD by cath 08/23/23
EF by echo previously 30-35%, now 15%
Severe mitral regurgitation
Moderate tricuspid regurgitation
Medical noncompliance
(Has refused carvedilol as well as Entresto)
Hemochromatosis
Dyslipidemia
ECHO 04/23/2024: EF 40 to 45%, mildly dilated LV, stage II diastolic dysfunction, moderate MR, mild TR, mildly elevated PASP, 39 mmHg
ECHO 09/28/24: EF 30 to 35%, global hypokinesis, mild concentric LVH, stage II diastolic dysfunction, at least moderate MR, mild to moderate TR, PAP 50 mmHg
ECHO 12/14/2024: EF 15%, severe global hypokinesis, MAC with severe MR with possible flow reversal in left pulmonary vein, trace AR, severe TR, PAP 28 mmHg, moderately dilated RA
Plan:
-Presented with SOB and found to be in rapid afib w/ evidence of acute heart failure.
-Afib is a new diagnosis this admission. Rates have been difficult to control, currently loading w/ amiodarone 400mg TID.
-Plan is for CRISTIAN/CV this AM.
-Continues on Eliquis 5mg BID for anticoagulation. She understands the importance of maintaining uninterrupted AC for at least 1 month post-CV, but likely longer.
-Echo 12/14/2024 noted severe MR. Will further assess mitral valve at time of CRISTIAN.
-EF has been reduced in the past at 30-35%, however now down to 15% by most recent echo. Has previously refused carvedilol and Entresto.
-Currently on Toprol 50mg daily. Lisinopril stopped due to hypotension. CM assessed the cost of Farxiga and patient is agreeable to start.
-Diuresing with IV lasix 40mg BID. Still appears volume overloaded. Weight flat at 169 lbs. Creat stable at 0.8.
-K down to 3.3 12/17. Agree w/ supplementation.
Progress Note - Asbestos Shingle Roofer
Subjective
Date of Service: December 17, 2024
Still feels somewhat poorly while in Afib. + edema.
Objective
Labs:
12/17/24 04:06
12/17/24 04:05
Labs
Hgb 14.5 g/dL (12.0-16.0) 12/17/24 04:06
Hct 42.2 % (37.0-47.0) 12/17/24 04:06
Plt Count 225 10^3/uL (130-400) 12/17/24 04:06
Sodium 131 mmol/L (135-145) L 12/17/24 04:05
Potassium 3.3 mmol/L (3.5-5.1) L 12/17/24 04:05
BUN 32 mg/dl (7-17) H 12/17/24 04:05
Creatinine 0.8 mg/dL (0.6-1.0) 12/17/24 04:05
Glucose 110 mg/dl (70-99) H 12/17/24 04:05
Vital Signs and I&O:
Vital Signs
Temp Pulse Resp BP Pulse Ox
98.2 F 121 18 103/82 96
12/17/24 04:08 12/17/24 04:00 12/17/24 04:08 12/17/24 03:50 12/17/24 04:08
Vital Signs
Temp Pulse Resp BP Pulse Ox
98.2 F 121 18 103/82 96
12/17/24 04:08 12/17/24 04:00 12/17/24 04:08 12/17/24 03:50 12/17/24 04:08
Intake & Output
12/15/24 12/16/24 12/17/24 12/18/24
06:59 06:59 06:59 06:59
Intake Total 600 / 600 480 / 480
Output Total 1000 / 1000 800 / 800 1100 / 1100
Balance -400 / -400 -800 / -800 -620 / -620
Physical Exam
Physical Exam
GEN: No distress, awake, alert, oriented x3
HEENT: supple, anicteric, mmm, eomi
LUNGS: Decreased at bases, no wheezes
CV: Irreg irreg, S1/S2, 2/6 murmur
EXT: No cyanosis, clubbing. 1+ edema of B/L LE
NEURO: Gross non-focal
SKIN: Warm, pink, dry. No rash
[2024-12-17] MEDS: KCL 270 MEQ IV (07:36)
[2024-12-17] MEDS: ELIQUIS 5 MG PO ×2 (07:44→19:35)
[2024-12-17] MEDS: PACERONE 400 MG PO (07:44)
[2024-12-17] MEDS: TOPROL XL 50 MG PO (07:44)
--- NOTE | 2024-12-17 07:44 | W.PN.HOSP.TC ---
Addendum entered and electronically signed by Hailey Morales MD 12/17/24 10:57:
I saw and evaluated the patient. I reviewed the resident�s note and agree with findings and plan as documented in the resident�s note.
A/P:
# New onset AFIB with RVR
Pt stopped taking coreg by herself
off cardizem drip, now on Toprol 50 mg BID
Added amiodarone, currently 400 mg 3 times daily
Cont Eliquis 5 mg BID
For CRISTIAN/DCCV planned for today 12/17
apprec cards,
TSH WNL at 2.79
# acute systolic CHF with reduced EF
Echo this admission 12/14: EF 15% visually. Diastolic function indeterminate. Severe mitral regurgitation with possible flow reversal in left pulmonary vein.
Cont IV lasix 40 mg BID
daily I/Os, 2gm sodium diet with fluid restriction to 48 oz/day
Off Lisinopril with borderline hypotension
# Elevated LFT
Continue to monitor
# Hypokalemia
Replete
DVT proph: Eliquis
Code Status - DNR
Original Note:
Today's Communication/Plan
-
CRISTIAN followed by cardioversion
Assessment / Plan
Assessment / Plan
74-year-old female with past medical history of congestive heart failure admitted for management of A-fib with RVR.
Assessment/plan
# New onset AFIB with RVR
likely due to discontinuing Coreg.
TSH WNL at 2.79
off cardizem drip, now on Toprol 50 mg BID
Started on Eliquis 5 mg BID, continue
Started on amiodarone 400 mg 3 times daily, continue
Monitor QTc
Cardiology following
Continue telemetry
CRISTIAN followed by cardioversion today.
# Acute systolic CHF with reduced EF
Echo this admission 12/14: EF 15% visually. Diastolic function indeterminate. Severe mitral regurgitation with possible flow reversal in left pulmonary vein.
Continue IV lasix, 40 mg BID
daily I/Os, 2gm sodium diet with fluid restriction to 48 oz/day
Monitor BMP on Lasix
Replete potassium as needed.
Continue metoprolol
Patient started on Farxiga
#Mild transaminitis
Likely related to amiodarone
Touch based with cardiology
Will continue to monitor
#Hypokalemia
3.3 today
Repleted
Monitor BMP
DVT proph: Eliquis
Code Status - DNR
Anticipated Discharge: Within 24 hours
Subjective/Interval History
-
Date of Service: December 17, 2024
Patient does not report any chest pain, palpitations.
Objective Data
-
Labs:
Laboratory Results
12/16/24 12/17/24 12/17/24
22:34 04:05 04:06
WBC 8.5
Hgb 14.5
Hct 42.2
Plt Count 225
Sodium 129 L 131 L
Potassium 3.5 3.3 L
Chloride 98 99
Carbon Dioxide 21 L 23
BUN 32 H 32 H
Creatinine 0.9 0.8
Glucose 124 H 110 H
Calcium 8.7 8.7
Total Bilirubin 0.5
AST 45 H
ALT 145 H
Alkaline Phosphatase 162 H
Vital Signs:
Vital Signs
Temp Pulse Resp BP Pulse Ox
97.5 F 121 20 103/82 97
12/17/24 07:21 12/17/24 04:00 12/17/24 07:21 12/17/24 03:50 12/17/24 07:21
I&O
12/16/24 12/17/24 12/18/24
06:59 06:59 06:59
Intake Total 480 / 480
Output Total 800 / 800 1100 / 1100
Balance -800 / -800 -620 / -620
Review of Systems
-
All other systems: Reviewed and negative (As per history)
Physical Exam
-
General: Well Developed and Well Nourished
HEENT: Normocephalic, Atraumatic and Moist Mucous Membranes
Respiratory: Clear to Auscultation
Cardiac: S1/S2, Irregular Rhythm and Tachycardic
GI: Soft, Nontender, Nondistended and Normal Bowel Sounds
Skin: Warm and Dry
Neuro: Awake, Alert, Oriented and AO x 3
Psych: Calm
[2024-12-17] MEDS: FARXIGA 10 MG PO (08:36)
--- NOTE | 2024-12-17 09:52 | PTCARENOTE ---
Patient NPO for CRISTIAN/CV. IV KCL infusing, K 3.3, meds given with a sip of water. A-Fib HR 105, rate better controlled today, +1 edema lower extremities. Voiding in the bathroom, dark yellow urine. Call santana in reach
--- NOTE | 2024-12-17 10:39 | PTCARENOTE ---
Patient sent to the dentures lab technician in her bed, report given
--- NOTE | 2024-12-17 10:42 | PN.CDI ---
CDI
- -
CDI:
Physician Documentation Request
Admit Date: 12/12/24 20:45
Dear Doctor Steff Fonseca,
Patient admitted for acute heart failure.
Laboratory Tests
12/12/24 12/14/24 12/15/24
18:20 04:05 04:21
Sodium 131 L 131 L 132 L
12/16/24 12/16/24 12/17/24
22:34 04:05
Sodium 133 L 129 L 131 L
Based on the above, could you clarify in the progress notes, the appropriate diagnosis, if significant, that supports the above abnormalities and additional evaluation, monitoring and/or treatment rendered:
Hyponatremia
Abnormal lab value insignificant
Other
Use of terms such as suspected, likely, concern for, or probable (associated with a specific diagnosis that is being evaluated, monitored, or treated as if it exists) are acceptable and can be coded in the inpatient setting, when documented at the
time of discharge.
Thank you,
Delores Garland RN, BSN
CDI Specialist
Available via [facility] text
Please use your independent medical judgment in providing your response.
[2024-12-17] MEDS: LASIX IV (12:30)
--- NOTE | 2024-12-17 13:11 | PTCARENOTE ---
Patient received from the slab depiler operator. AO x3, dry non-productive cough with talking. A-fib HR 116, BP 111/82. Diet ordered, call santana in reach
[2024-12-17 14:08] LABS: NT-proBNP 3880 pg/ml
--- NOTE | 2024-12-17 15:07 | CM ---
Reviewed chart. She is feeling okay. Prior to admission she resides alone in a thrid floor apartment with an elevator. Prior to admission she was independent with ambulation and adls. She does not have any DME in the home. She has a
prescription plan with [facility] and uses [facility]. Medical work-up in progress. The discharge plan is to return home when medically stable.
[2024-12-17] MEDS: LASIX 60 MG IV (16:18)
[2024-12-17] MEDS: TOPROL XL 75 MG PO (19:36)
--- NOTE | 2024-12-17 19:45 | PTCARENOTE ---
Received patient at change of shift. Patient sitting in bed, awake and oriented x3. BP 107/83, A-Fib 140s-120s with occasional PVCs, 97% on room air. Discussed plan of care with patient for the evening. Patient verbalized understanding. Call santana
within reach.
[2024-12-18] VITALS (10 sets, daily range): BP systolic 85–111; BP diastolic 36–87; BMI 28.2
[2024-12-18 05:09] LABS: % Basophils 0.5 % (0-2); % Eosinophils 0.6 % (0-6); % Immature Granulocytes 0.5 % (0-0.5); % Lymphocytes 22.6 % (20.5-51.1); % Monocytes 11.5 % (1.7-9.3); % Neutrophils 64.3 % (42.2-75.2); Absolute Eosinophils 0.1 10^3/uL (0-0.7); Absolute Lymphocytes 1.9 10^3/uL (1.2-3.4); Absolute Neutrophils 5.5 10^3/uL (1.4-6.5); Hematocrit 43.9 % (37.0-47.0); Hemoglobin 14.6 g/dL (12.0-16.0); Mean Corp Hgb Conc. 33.3 g/dL (33.0-37.0); Mean Corpuscular Hgb 35.3 pg (27.0-31.0); Mean Platelet Volume 11.6 fL (7.4-10.4); Nucleated Red Blood Cells % 0 %; Platelet Count 215 10^3/uL (130-400); Red Blood Cell Count 4.14 10^6/uL (4.20-5.40); Red Cell Dist. Width 13.2 % (11.5-14.5); White Blood Cell Count 8.5 10^3/uL (4.8-10.8)
[2024-12-18 06:00] LABS: ALT (SGPT) 128 U/L (0-35); AST (SGOT) 52 U/L (14-36); Albumin 3.1 g/dl (3.5-5.0); Alkaline Phosphatase 167 U/L (38-126); Blood Urea Nitrogen 33 mg/dl (7-17); Calcium 8.6 mg/dl (8.4-10.2); Carbon Dioxide 25 mmol/L (22-30); Chloride 98 mmol/L (98-107); Estimated Creatinine Clearance 47 ml/min; Glucose 111 mg/dl (70-99); Magnesium 2.1 mg/dl (1.6-2.3); Potassium 4.2 mmol/L (3.5-5.1); Sodium 134 mmol/L (135-145); Total Bilirubin 0.5 mg/dl (0.2-1.3); Total Protein 5.2 g/dl (6.3-8.2); eGFR 53.39
[2024-12-18] MEDS: ELIQUIS 5 MG PO ×2 (09:33→20:12)
[2024-12-18] MEDS: FARXIGA 10 MG PO (09:34)
--- NOTE | 2024-12-18 09:56 | W.PN.CARDCBS ---
Addendum entered and electronically signed by Edward La MD 12/18/24 12:56:
Attending addendum: Patient seen and examined. PA note reviewed and findings confirmed. I held a long discussion with patient re: cornerstone therapy for cardiomyopathy include beta chapincito, RIGOBERTO/ARB/ARNI, spironolactone, SGLT/GLP. She stated
that she doesn't like taking medications. HR remain high BP a little soft. She was just started on low dose midodrine and continues with Toprol XL. I wonder if digoxin therapy may help HR control given limitations of BP. Continue diuresis.
Maybe we could add low dose spironolactone and follow renal function closely.
In addition to her reluctance to take medications she stated that she drinks 1-2 alcoholic beverages daily. I recommended discontinuation.
Will follow and make further recommendations based on HR control and willingness to take medications
Original Note:
Today's Communication / Plan
-
Hold lasix w/ hypotension and bump in creat
Continue Toprol, may need to increase dose
Start midodrine 2.5mg TID to allow uptitration of rate control
Continue Eliquis 5mg BID
Impression / Plan
-
Primary Corn Husker: Dr. Stewart
Assessment:
Presented with SOB
Atrial fibrillation with rapid ventricular rates, new diagnosis
MIREYA thrombus by CRISTIAN 12/17/2024
Acute HFrEF
Nonischemic cardiomyopathy - no significant CAD by cath 08/23/23
EF by echo previously 30-35%, now 15%
Severe mitral regurgitation
Moderate tricuspid regurgitation
Medical noncompliance
(Has refused carvedilol as well as Entresto)
Hemochromatosis
Dyslipidemia
ECHO 04/23/2024: EF 40 to 45%, mildly dilated LV, stage II diastolic dysfunction, moderate MR, mild TR, mildly elevated PASP, 39 mmHg
ECHO 09/28/2024: EF 30 to 35%, global hypokinesis, mild concentric LVH, stage II diastolic dysfunction, at least moderate MR, mild to moderate TR, PAP 50 mmHg
ECHO 12/14/2024: EF 15%, severe global hypokinesis, MAC with severe MR with possible flow reversal in left pulmonary vein, trace AR, severe TR, PAP 28 mmHg, moderately dilated RA
Plan:
-Presented with SOB and found to be in rapid afib w/ evidence of acute heart failure.
-Afib is a new diagnosis this admission. Rates have been difficult to control. Started on amiodarone load, however CRISTIAN 12/17 revealed MIREYA thrombus and amiodarone stopped w/ plan to continue rate control alone.
-Continue increased dose of Toprol 75mg BID, dose increased in PM 12/17. If HR remains elevated throughout the day today, will consider increasing Toprol to 100mg BID versus adding Dig/diltiazem.
-Continue Eliquis 5mg BID.
-Hypotension noted overnight and this AM. Will start midodrine 2.5mg TID to allow for uptitration of rate control medications.
-Known CM with EF previously 30-35%, now down to 15%. Possibly tachycardia mediated. Lisinopril stopped due to hypotension.
-New to Farxiga 10mg daily 12/17.
-Has been diuresing with IV lasix, dose increased to 60mg BID 12/17, however creat bumped, up to 1.1 on 12/18. ProBNP improving. Weight has been relatively flat at approximately 169 lbs, but she notes improvement in her edema.
-Severe MR noted on TTE 12/14 and CRISTIAN 12/17, will discuss options w/ primary nursing care partner as OP.
-K improved s/p repletion 12/17.
Progress Note - Corn Husker
Subjective
Date of Service: December 18, 2024
Reports feeling tired today. No SOB or palpitations. Edema improving.
Objective
Labs:
12/18/24 04:11
12/18/24 04:11
Labs
Hgb 14.6 g/dL (12.0-16.0) 12/18/24 04:11
Hct 43.9 % (37.0-47.0) 12/18/24 04:11
Plt Count 215 10^3/uL (130-400) 12/18/24 04:11
Sodium 134 mmol/L (135-145) L 12/18/24 04:11
Potassium 4.2 mmol/L (3.5-5.1) D 12/18/24 04:11
BUN 33 mg/dl (7-17) H 12/18/24 04:11
Creatinine 1.1 mg/dL (0.6-1.0) H 12/18/24 04:11
Glucose 111 mg/dl (70-99) H 12/18/24 04:11
Vital Signs and I&O:
Vital Signs
Temp Pulse Resp BP Pulse Ox
97.7 F 121 16 101/81 97
12/18/24 08:42 12/18/24 09:34 12/18/24 08:42 12/18/24 09:34 12/18/24 08:42
Vital Signs
Temp Pulse Resp BP Pulse Ox
97.7 F 121 16 101/81 97
12/18/24 08:42 12/18/24 09:34 12/18/24 08:42 12/18/24 09:34 12/18/24 08:42
Intake & Output
12/16/24 12/17/24 12/18/24 12/19/24
06:59 06:59 06:59 06:59
Intake Total 480 / 480 250 / 250
Output Total 800 / 800 1100 / 1100 1000 / 1000
Balance -800 / -800 -620 / -620 -750 / -750
Physical Exam
Physical Exam
GEN: No distress, awake, alert, oriented x3
HEENT: supple, anicteric, mmm, eomi
LUNGS: CTA b/l, no wheezes
CV: Irreg irreg, S1/S2, 2/6 murmur
EXT: No cyanosis, clubbing. trace edema of B/L LE
NEURO: Gross non-focal
SKIN: Warm, pink, dry. No rash
[2024-12-18] MEDS: LASIX IV (10:25)
[2024-12-18] MEDS: ProAmatine 2.5 MG PO ×3 (10:41→17:29)
[2024-12-18] MEDS: TOPROL XL 75 MG PO (11:18)
--- NOTE | 2024-12-18 15:39 | CM ---
no change in dc plan, home when medically stable.
--- NOTE | 2024-12-18 17:04 | W.PN.HOSP.TC ---
Addendum entered and electronically signed by Hailey Morales MD 12/18/24 17:22:
I saw and evaluated the patient. I reviewed the resident�s note and agree with findings and plan as documented in the resident�s note.
A/P:
# New onset AFIB with RVR
Pt stopped taking coreg by herself
off cardizem drip, now on Toprol, increased to 100 mg BID by card
off amiodarone with elevated LFT
Cont Eliquis 5 mg BID
CRISTIAN 12/17 noted LA appendage thrombus, hence cardioversion plan was aborted
Continue rate control with meds
apprec cards,
TSH WNL at 2.79
# acute systolic CHF with reduced EF
Echo this admission 12/14: EF 15% visually. Diastolic function indeterminate. Severe mitral regurgitation with possible flow reversal in left pulmonary vein.
IV lasix on hold with bump in SCr to 1.1
daily I/Os, 2gm sodium diet with fluid restriction to 48 oz/day
Off Lisinopril with borderline hypotension
# DEBORAH, possibly due to overdiuresis
Serum creatinine 1.1, from baseline 0.8
IV lasix on hold
# Elevated LFT
monitor
# Hypokalemia
Repleted
DVT proph: Eliquis
Code Status - DNR
Original Note:
Today's Communication/Plan
-
Metoprolol increased to 100 mg twice daily
Started on midodrine
Lasix on hold
Assessment / Plan
Assessment / Plan
74-year-old female with past medical history of congestive heart failure admitted for management of A-fib with RVR.
Assessment/plan
# New onset AFIB with RVR
likely due to discontinuing Coreg.
TSH WNL at 2.79
off cardizem drip,
Started on Eliquis 5 mg BID, continue
Amiodarone discontinued
Rate control with metoprolol, increased the dose to 100 mg twice daily.
Continue telemetry
Earlier planned on doing cardioversion after CRISTIAN, but echo showed evidence of MIREYA thrombus and severe MR, not a candidate for cardioversion.
Cardiology following
#Hypotension
Started on midodrine 2.5 mg 3 times daily
# Acute systolic CHF with reduced EF
Echo this admission 12/14: EF 15% visually. Diastolic function indeterminate. Severe mitral regurgitation with possible flow reversal in left pulmonary vein.
Lasix on hold as creatinine trended high to 1.1
daily I/Os, 2gm sodium diet with fluid restriction to 48 oz/day
Monitor BMP on Lasix
Replete potassium as needed.
Continue metoprolol
Patient started on Farxiga
#Mild transaminitis
Likely related to amiodarone, discontinued
Will continue to monitor
#Hypokalemia
Resolved
R replete as necessary
Monitor BMP
DVT proph: Eliquis
Code Status - DNR
Anticipated Discharge: 24 - 48 hours
Subjective/Interval History
-
Date of Service: December 18, 2024
Objective Data
-
Labs:
Laboratory Results
12/18/24
04:11
WBC 8.5
Hgb 14.6
Hct 43.9
Plt Count 215
Sodium 134 L
Potassium 4.2 D
Chloride 98
Carbon Dioxide 25
BUN 33 H
Creatinine 1.1 H
Glucose 111 H
Calcium 8.6
Total Bilirubin 0.5
AST 52 H
ALT 128 H
Alkaline Phosphatase 167 H
Vital Signs:
Vital Signs
Temp Pulse Resp BP Pulse Ox
98.2 F 126 18 111/78 96
12/18/24 16:17 12/18/24 14:08 12/18/24 16:17 12/18/24 14:08 12/18/24 16:17
I&O
12/17/24 12/18/24 12/19/24
06:59 06:59 06:59
Intake Total 480 / 480 250 / 250 480 / 480
Output Total 1100 / 1100 1000 / 1000
Balance -620 / -620 -750 / -750 480 / 480
Physical Exam
-
General: No Apparent Distress
HEENT: Normocephalic and Atraumatic
Respiratory: Clear to Auscultation
Cardiac: S1/S2, Irregular Rhythm and Tachycardic
GI: Soft, Nontender, Nondistended and Normal Bowel Sounds
Musculoskeletal: Other (Bilateral pedal edema)
Skin: Warm and Dry
Neuro: Awake, Alert, Oriented and AO x 3
--- NOTE | 2024-12-18 19:16 | PTCARENOTE ---
pt continues to be afib on the monitor, hr in the 130s, vss. pt offers no complaints at this time. pt educated on plan of care and pt verbalized understanding. call santana within reach.
[2024-12-18] MEDS: TOPROL XL 100 MG PO (20:13)
--- NOTE | 2024-12-18 21:42 | PTCARENOTE ---
Received patient at change of shift. Resting in bed, awoke to tactile stimulation. Oriented x3. BP 95/36, A-Fib 110s-120s, 97% on room air. Patient states 'feeling puffy' after not receiving dose of Lasix today-- noted increased edema from previous
shift. Pt also stated being 'extremely tired' tonight. Discussed plan of care. Patient verbalized understanding. Call santana within reach.
--- NOTE | 2024-12-18 22:20 | PTCARENOTE ---
Pt converted to NSR @ 22:16. Vitals stable. Cardizem gtt continued @ 5 mL/hr at this time.
[2024-12-19] VITALS (10 sets, daily range): BP systolic 92–123; BP diastolic 49–89; BMI 28.4
[2024-12-19 05:34] LABS: % Basophils 0.5 % (0-2); % Eosinophils 1.2 % (0-6); % Immature Granulocytes 0.5 % (0-0.5); % Lymphocytes 21.4 % (20.5-51.1); % Monocytes 12.2 % (1.7-9.3); % Neutrophils 64.2 % (42.2-75.2); Absolute Eosinophils 0.1 10^3/uL (0-0.7); Absolute Lymphocytes 1.6 10^3/uL (1.2-3.4); Absolute Monocytes 0.9 10^3/uL (0.1-0.6); Absolute Neutrophils 4.7 10^3/uL (1.4-6.5); Hematocrit 40.9 % (37.0-47.0); Hemoglobin 13.7 g/dL (12.0-16.0); Mean Corp Hgb Conc. 33.5 g/dL (33.0-37.0); Mean Corpuscular Hgb 35.5 pg (27.0-31.0); Mean Platelet Volume 11.7 fL (7.4-10.4); Nucleated Red Blood Cells % 0 %; Platelet Count 206 10^3/uL (130-400); Red Blood Cell Count 3.86 10^6/uL (4.20-5.40); Red Cell Dist. Width 13.2 % (11.5-14.5); White Blood Cell Count 7.4 10^3/uL (4.8-10.8)
[2024-12-19 05:53] LABS: ALT (SGPT) 120 U/L (0-35); AST (SGOT) 55 U/L (14-36); Albumin 2.7 g/dl (3.5-5.0); Alkaline Phosphatase 176 U/L (38-126); Blood Urea Nitrogen 33 mg/dl (7-17); Calcium 8.4 mg/dl (8.4-10.2); Carbon Dioxide 27 mmol/L (22-30); Chloride 98 mmol/L (98-107); Estimated Creatinine Clearance 52 ml/min; Glucose 102 mg/dl (70-99); Potassium 3.6 mmol/L (3.5-5.1); Sodium 133 mmol/L (135-145); Total Bilirubin 0.4 mg/dl (0.2-1.3); Total Protein 4.7 g/dl (6.3-8.2); eGFR 59.86
[2024-12-19] MEDS: FARXIGA 10 MG PO (08:52)
[2024-12-19] MEDS: ELIQUIS 5 MG PO ×2 (08:52→19:49)
[2024-12-19] MEDS: ProAmatine 2.5 MG PO (08:52)
[2024-12-19] MEDS: TOPROL XL 100 MG PO ×2 (08:53→19:49)
--- NOTE | 2024-12-19 09:27 | W.PN.HOSP.TC ---
Today's Communication/Plan
-
see A/P
Assessment / Plan
Assessment / Plan
A/P:
# New onset AFIB with RVR
Pt stopped taking coreg by herself
off cardizem drip, now on Toprol, increased to 100 mg BID by card
off amiodarone with elevated LFT
Cont Eliquis 5 mg BID
CRISTIAN 12/17 noted LA appendage thrombus, hence cardioversion aborted
Continue rate control with meds
apprec cards,
TSH WNL at 2.79
# acute systolic CHF with reduced EF, resolving
Echo this admission 12/14: EF 15% visually. Diastolic function indeterminate. Severe mitral regurgitation with possible flow reversal in left pulmonary vein.
IV lasix on hold with slight increase in SCr to 1.1, today SCr at 1.0
daily I/Os, 2gm sodium diet with fluid restriction to 48 oz/day
Off Lisinopril with borderline hypotension
# Hypotension
Midodrine 2.5 mg TID added for BP support
# Elevated LFT
monitor
# Hypokalemia
Repleted
DVT proph: Eliquis
Code Status - DNR
Anticipated Discharge: > 48 hours
Subjective/Interval History
-
Date of Service: December 19, 2024
Objective Data
-
Labs:
Laboratory Results
12/19/24
04:32
WBC 7.4
Hgb 13.7
Hct 40.9
Plt Count 206
Sodium 133 L
Potassium 3.6
Chloride 98
Carbon Dioxide 27
BUN 33 H
Creatinine 1.0
Glucose 102 H
Calcium 8.4
Total Bilirubin 0.4
AST 55 H
ALT 120 H
Alkaline Phosphatase 176 H
Vital Signs:
Vital Signs
Temp Pulse Resp BP Pulse Ox
36.5 C 107 18 100/74 96
12/19/24 04:22 12/19/24 08:53 12/19/24 07:22 12/19/24 08:53 12/19/24 07:22
I&O
12/18/24 12/19/24 12/20/24
06:59 06:59 06:59
Intake Total 250 / 250 480 / 480
Output Total 1000 / 1000 200 / 200
Balance -750 / -750 280 / 280
Review of Systems
-
All other systems: Reviewed and negative
Physical Exam
-
General: Well Developed, Well Nourished, No Apparent Distress, Comfortable and Conversant
HEENT: Normocephalic and Atraumatic
Respiratory: Clear to Auscultation
Cardiac: S1/S2, Irregular Rhythm and Tachycardic
GI: Soft, Nontender, Nondistended and Normal Bowel Sounds
Skin: Warm and Dry
Neuro: Awake, Alert, Oriented and AO x 3
Psych: Calm and Intact Judgement/Insight
Data Reviewed
-
Labs: Labs Reviewed by me
--- NOTE | 2024-12-19 09:41 | W.PN.CARDCBS ---
Today's Communication / Plan
-
Continue Toprol 100 mg p.o. twice daily. Continue Eliquis.
Restart Lasix 60 mg IV twice daily. Cont Midodrine
Will add digoxin to try to help with rate control. Will use 0.25 mg today and 0.125 mg daily. Check digoxin level in 3 days.
Continue Farxiga.
Prognosis is very poor. Encourage compliance.
Impression / Plan
-
Primary Wireless Architect: Dr. Stewart
Assessment:
Presented with SOB
Atrial fibrillation with rapid ventricular rates, new diagnosis
MIREYA thrombus by CRISTIAN 12/17/2024
Acute HFrEF
Nonischemic cardiomyopathy - no significant CAD by cath 08/23/23
EF by echo previously 30-35%, now 15%
Severe mitral regurgitation
Moderate tricuspid regurgitation
Medical noncompliance
(Has refused carvedilol as well as Entresto)
Hemochromatosis
Dyslipidemia
ECHO 04/23/2024: EF 40 to 45%, mildly dilated LV, stage II diastolic dysfunction, moderate MR, mild TR, mildly elevated PASP, 39 mmHg
ECHO 09/28/2024: EF 30 to 35%, global hypokinesis, mild concentric LVH, stage II diastolic dysfunction, at least moderate MR, mild to moderate TR, PAP 50 mmHg
ECHO 12/14/2024: EF 15%, severe global hypokinesis, MAC with severe MR with possible flow reversal in left pulmonary vein, trace AR, severe TR, PAP 28 mmHg, moderately dilated RA
CRISTIAN 12/17/24: EF 10 to 15%, severe mitral regurgitation, moderate to severe TR. Left atrial appendage thrombus.
Plan:
-Remains sick with likely low-level cardiogenic shock. Her blood pressure remains marginal and is now on midodrine.
-Continue Toprol 100 mg p.o. twice daily. Continue midodrine. Will attempt to add digoxin today as all other treatment options are limited. Amiodarone was stopped due to left atrial appendage thrombus.
-Continue Farxiga.
-She remains volume overloaded and will restart Lasix today creatinine is overall stable. We may need to accept some azotemia to help manage her volume status.
-Hold off on RIGOBERTO/ARB/Aldactone/Entresto for now due to hypotension. She has refused these medications in the past.
-Her left atrial appendage thrombus is large and likely will take an extended period of time before this resolves with anticoagulation. Continue Eliquis and encourage compliance.
Progress Note - Wireless Architect
Subjective
Date of Service: December 19, 2024
[place] somewhat short of breath overnight. Denies dizziness or chest pains. Feels occasional palpitations.
Objective
Labs:
12/19/24 04:32
12/19/24 04:32
Labs
Hgb 13.7 g/dL (12.0-16.0) 12/19/24 04:32
Hct 40.9 % (37.0-47.0) 12/19/24 04:32
Plt Count 206 10^3/uL (130-400) 12/19/24 04:32
Sodium 133 mmol/L (135-145) L 12/19/24 04:32
Potassium 3.6 mmol/L (3.5-5.1) 12/19/24 04:32
BUN 33 mg/dl (7-17) H 12/19/24 04:32
Creatinine 1.0 mg/dL (0.6-1.0) 12/19/24 04:32
Glucose 102 mg/dl (70-99) H 12/19/24 04:32
Vital Signs and I&O:
Vital Signs
Temp Pulse Resp BP Pulse Ox
97.7 F 107 18 100/74 96
12/19/24 04:22 12/19/24 08:53 12/19/24 07:22 12/19/24 08:53 12/19/24 07:22
Vital Signs
Temp Pulse Resp BP Pulse Ox
97.7 F 107 18 100/74 96
12/19/24 04:22 12/19/24 08:53 12/19/24 07:22 12/19/24 08:53 12/19/24 07:22
Intake & Output
12/17/24 12/18/24 12/19/24 12/20/24
06:59 06:59 06:59 06:59
Intake Total 480 / 480 250 / 250 480 / 480
Output Total 1100 / 1100 1000 / 1000 200 / 200
Balance -620 / -620 -750 / -750 280 / 280
Physical Exam
Physical Exam
GEN: No distress, awake, Ox3
HEENT: supple, anicteric, mmm
LUNGS: CTA, no wheezes/rales
CV: Irreg, S1/S2, 2/6 syst apex, S3+
ABD: soft, BS+, NT/ND
EXT: No edema
NEURO: Gross non-focal
SKIN: No rash
[2024-12-19] MEDS: KCL 40 MEQ PO (10:19)
[2024-12-19] MEDS: LANOXIN 250 MCG PO (10:19)
[2024-12-19] MEDS: ProAmatine 5 MG PO ×2 (11:56→18:03)
[2024-12-19] MEDS: LASIX 60 MG IV ×2 (11:57→16:45)
--- NOTE | 2024-12-19 18:38 | PTCARENOTE ---
Discussed the pt's diagnosis and plan of care. Encouraged questions. Pt verbalized understanding. Will monitor.
--- NOTE | 2024-12-19 23:12 | PTCARENOTE ---
Received patient at change of shift. Afib on the monitor, HR in the 100s. No complaints from pt at this time, call santana within reach.
[2024-12-20] VITALS (8 sets, daily range): BP systolic 93–138; BP diastolic 58–121; BMI 27.8
--- NOTE | 2024-12-20 08:55 | W.PN.HOSP.TC ---
Today's Communication/Plan
-
see A/P
Assessment / Plan
Assessment / Plan
A/P:
# New onset AFIB with RVR
Pt stopped taking coreg by herself
off cardizem drip, now on Toprol, increased to 100 mg BID by card
Dig added
off amiodarone with elevated LFT
Added midodrine 5 mg TID for BP support
Cont Eliquis 5 mg BID
CRISTIAN 12/17 noted LA appendage thrombus, hence cardioversion aborted
Continue rate control with meds
apprec cards,
TSH WNL at 2.79
# acute systolic CHF with reduced EF, resolving
Echo this admission 12/14: EF 15% visually. Diastolic function indeterminate. Severe mitral regurgitation with possible flow reversal in left pulmonary vein.
resumed IV Lasix 60 mg BID
Toprol as above
Off Lisinopril with borderline hypotension
Farxiga added
daily I/Os, 2gm sodium diet with fluid restriction to 48 oz/day
# Hypotension
Midodrine added for BP support, now on 5 mg TID
# Elevated LFT
monitor
# Hypokalemia
Repleted
# Hyponatremia
DVT proph: Eliquis
Code Status - DNR
Anticipated Discharge: > 48 hours
Subjective/Interval History
-
Date of Service: December 20, 2024
Objective Data
-
Labs:
Laboratory Results
12/20/24 12/20/24
05:09 08:16
Sodium Cancelled Pending
Potassium Cancelled Pending
Chloride Cancelled Pending
Carbon Dioxide Cancelled Pending
BUN Cancelled Pending
Creatinine Cancelled Pending
Glucose Cancelled Pending
Calcium Cancelled Pending
Total Bilirubin Cancelled Pending
AST Cancelled Pending
ALT Cancelled Pending
Alkaline Phosphatase Cancelled Pending
Vital Signs:
Vital Signs
Temp Pulse Resp BP Pulse Ox
36.9 C 97 18 96/74 97
12/20/24 05:00 12/20/24 05:00 12/20/24 05:00 12/20/24 04:41 12/20/24 05:00
I&O
12/19/24 12/20/24 12/21/24
06:59 06:59 06:59
Intake Total 480 / 480 360 / 360
Output Total 200 / 200 2550 / 2550
Balance 280 / 280 -2190 / -2190
Review of Systems
-
All other systems: Reviewed and negative
Physical Exam
-
General: Well Developed, Well Nourished, No Apparent Distress, Comfortable and Conversant
HEENT: Normocephalic and Atraumatic
Respiratory: Clear to Auscultation
Cardiac: S1/S2, Irregular Rhythm and Tachycardic
GI: Soft, Nontender, Nondistended and Normal Bowel Sounds
Musculoskeletal: Edema, Right Lower Extrem and Edema, Left Lower Extrem
Skin: Warm and Dry
Neuro: Awake, Alert, Oriented and AO x 3
Psych: Calm and Intact Judgement/Insight
Data Reviewed
-
Labs: Labs Reviewed by me
[2024-12-20 08:56] LABS: ALT (SGPT) 120 U/L (0-35); AST (SGOT) 42 U/L (14-36); Albumin 3.4 g/dl (3.5-5.0); Alkaline Phosphatase 205 U/L (38-126); Blood Urea Nitrogen 31 mg/dl (7-17); Carbon Dioxide 24 mmol/L (22-30); Chloride 99 mmol/L (98-107); Estimated Creatinine Clearance 52 ml/min; Glucose 100 mg/dl (70-99); Potassium 3.8 mmol/L (3.5-5.1); Sodium 131 mmol/L (135-145); Total Bilirubin 0.6 mg/dl (0.2-1.3); Total Protein 5.5 g/dl (6.3-8.2); eGFR 59.86
--- NOTE | 2024-12-20 09:03 | W.PN.CARDCBS ---
Today's Communication / Plan
-
Likely low-level cardiogenic shock
Continues to diurese with over 2100 cc negative Is and Os last 24 hrs, weight 167, coming down
Bp support with midodrine started this admit
Cont Toprol 100 mg p.o. twice daily for rate control and CM
Hold off on RIGOBERTO/ARB/Aldactone/Entresto for now due to hypotension.
She has refused these medications in the past, but has been more compliant and willing this admit
Cont Lasix 60 mg IV daily
Monitor Is and Os and daily wt and cr
Cr remains stable.
Continue Farxiga.
We may need to accept some azotemia to help manage her volume status.
Remains in aFib with rate control strategy given MIREYA thrombus
Amiodarone was stopped due to left atrial appendage thrombus.
Check EKG
Cont Digoxin
Her left atrial appendage thrombus is large and likely will take an extended period of time before this resolves with anticoagulation.
Continue Eliquis and encourage compliance.
She understands the gravity of her medical issues including CM, HF, MIREYA thrombus, AFib with RVR
Impression / Plan
-
.
Primary Medical Artist: Dr. Stewart
Impression:
Presented with SOB
Atrial fibrillation with rapid ventricular rates, new diagnosis
MIREYA thrombus by CRISTIAN 12/17/2024
Acute HFrEF
Nonischemic cardiomyopathy - no significant CAD by cath 08/23/23
EF by echo previously 30-35%, now 15%
Severe mitral regurgitation
Moderate tricuspid regurgitation
Medical noncompliance
(Has refused carvedilol as well as Entresto)
Hemochromatosis
Dyslipidemia
ECHO 04/23/2024: EF 40 to 45%, mildly dilated LV, stage II diastolic dysfunction, moderate MR, mild TR, mildly elevated PASP, 39 mmHg
ECHO 09/28/2024: EF 30 to 35%, global hypokinesis, mild concentric LVH, stage II diastolic dysfunction, at least moderate MR, mild to moderate TR, PAP 50 mmHg
ECHO 12/14/2024: EF 15%, severe global hypokinesis, MAC with severe MR with possible flow reversal in left pulmonary vein, trace AR, severe TR, PAP 28 mmHg, moderately dilated RA
CRISTIAN 12/17/24: EF 10 to 15%, severe mitral regurgitation, moderate to severe TR. Left atrial appendage thrombus.
Plan:
Likely low-level cardiogenic shock
Continues to diurese with over 2100 cc negative Is and Os last 24 hrs, weight 167, coming down
Bp support with midodrine started this admit
Cont Toprol 100 mg p.o. twice daily for rate control and CM
Hold off on RIGOBERTO/ARB/Aldactone/Entresto for now due to hypotension.
She has refused these medications in the past, but has been more compliant and willing this admit
Cont Lasix 60 mg IV daily
Monitor Is and Os and daily wt and cr
Cr remains stable.
Continue Farxiga.
We may need to accept some azotemia to help manage her volume status.
Remains in aFib with rate control strategy given MIREYA thrombus
Amiodarone was stopped due to left atrial appendage thrombus.
Check EKG
Cont Digoxin
Her left atrial appendage thrombus is large and likely will take an extended period of time before this resolves with anticoagulation.
Continue Eliquis and encourage compliance.
She understands the gravity of her medical issues including CM, HF, MIREYA thrombus, AFib with RVR
Discussed with nursing.
Progress Note - Medical Artist
Subjective
Date of Service: December 20, 2024
Pt seen and examined. She feels slightly improved. No chest pain
Objective
Labs:
12/19/24 04:32
12/20/24 08:16
Labs
Hgb 13.7 g/dL (12.0-16.0) 12/19/24 04:32
Hct 40.9 % (37.0-47.0) 12/19/24 04:32
Plt Count 206 10^3/uL (130-400) 12/19/24 04:32
Sodium 131 mmol/L (135-145) L 12/20/24 08:16
Potassium 3.8 mmol/L (3.5-5.1) 12/20/24 08:16
BUN 31 mg/dl (7-17) H 12/20/24 08:16
Creatinine 1.0 mg/dL (0.6-1.0) 12/20/24 08:16
Glucose 100 mg/dl (70-99) H 12/20/24 08:16
Vital Signs and I&O:
Vital Signs
Temp Pulse Resp BP Pulse Ox
98.4 F 97 18 96/74 97
12/20/24 05:00 12/20/24 05:00 12/20/24 05:00 12/20/24 04:41 12/20/24 05:00
Vital Signs
Temp Pulse Resp BP Pulse Ox
98.4 F 97 18 96/74 97
12/20/24 05:00 12/20/24 05:00 12/20/24 05:00 12/20/24 04:41 12/20/24 05:00
Intake & Output
12/18/24 12/19/24 12/20/24 12/21/24
06:59 06:59 06:59 06:59
Intake Total 250 / 250 480 / 480 360 / 360
Output Total 1000 / 1000 200 / 200 2550 / 2550
Balance -750 / -750 280 / 280 -2190 / -2190
Physical Exam
Physical Exam
General: No acute distress, AAOX3
Neck: Negative JVD
Heart: Irregular irregular, Negative S3 positive S1/S2, Negative S4, No murmur
Lungs: CTA b/l, negative wheezes/rales/rhonchi
Abd: Positive BS, NT/ND, neg rebound/rigidity/guarding
Ext: Negative cyanosis/clubbing/edema
Neuro: nonfocal
[2024-12-20] MEDS: ProAmatine 5 MG PO ×3 (09:10→17:45)
[2024-12-20] MEDS: TOPROL XL 100 MG PO ×2 (09:10→20:28)
[2024-12-20] MEDS: ELIQUIS 5 MG PO ×2 (09:10→20:28)
[2024-12-20] MEDS: FARXIGA 10 MG PO (09:10)
[2024-12-20] MEDS: LASIX 60 MG IV ×2 (09:11→15:23)
[2024-12-20] MEDS: LANOXIN 125 MCG PO (12:20)
--- NOTE | 2024-12-20 16:56 | PTCARENOTE ---
Discussed all nursing measures prior to implementation. Will monitor.
--- NOTE | 2024-12-20 21:54 | PTCARENOTE ---
Received patient at change of shift. Patient sitting in bed, awake and oriented x3. BP 121/66, AFib with PVCs 90s-100s, 97% on room air. Patient able to carry on a conversation without getting SOB and coughing, unlike past nights. Pt states 'feeling
better' compared to previous nights. Discussed plan of care for the evening. Patient verbalized understanding. Call santana within reach.
[2024-12-21] VITALS (9 sets, daily range): BP systolic 85–113; BP diastolic 70–82; BMI 27.4
[2024-12-21 05:17] LABS: ALT (SGPT) 96 U/L (0-35); AST (SGOT) 29 U/L (14-36); Alkaline Phosphatase 167 U/L (38-126); Blood Urea Nitrogen 28 mg/dl (7-17); Calcium 8.7 mg/dl (8.4-10.2); Carbon Dioxide 30 mmol/L (22-30); Chloride 98 mmol/L (98-107); Estimated Creatinine Clearance 47 ml/min; Glucose 87 mg/dl (70-99); Potassium 3.3 mmol/L (3.5-5.1); Sodium 135 mmol/L (135-145); Total Bilirubin 0.3 mg/dl (0.2-1.3); Total Protein 5.1 g/dl (6.3-8.2); eGFR 53.39
--- NOTE | 2024-12-21 08:10 | W.PN.HOSP.TC ---
Addendum entered and electronically signed by Hailey Morales MD 12/21/24 12:32:
I saw and evaluated the patient. I reviewed the resident�s note and agree with findings and plan as documented in the resident�s note.
A/P:
# New onset AFIB with RVR, now persistent A fib
Pt stopped taking [employer] coreg by herself
off cardizem drip, now on Toprol 100 mg BID
Started Digoxin 125 mcg
off amiodarone with elevated LFT
Cont Eliquis 5 mg BID
CRISTIAN 12/17 noted LA appendage thrombus, hence cardioversion aborted
Continue rate control with meds
apprec cards,
TSH WNL at 2.79
# acute systolic CHF with reduced EF, resolving
Echo this admission 12/14: EF 15% visually. Diastolic function indeterminate. Severe mitral regurgitation with possible flow reversal in left pulmonary vein.
restarted IV lasix 60 mg BID
daily I/Os, 2gm sodium diet with fluid restriction to 48 oz/day
Off Lisinopril with borderline hypotension
# Hypotension
Midodrine added, now on 5 mg TID for BP support
# Elevated LFT
monitor
# Hypokalemia
Repleted
DVT proph: Eliquis
Code Status - DNR
Original Note:
Today's Communication/Plan
-
Continue IV Lasix
Check digoxin levels tomorrow
Continue Toprol
Continue Eliquis
Assessment / Plan
Assessment / Plan
74-year-old female with past medical history of congestive heart failure admitted for management of A-fib with RVR.
Impression/ Plan
# New onset AFIB with RVR
likely due to discontinuing Coreg.
TSH WNL at 2.79
off cardizem drip,
Started on Eliquis 5 mg BID, continue
Amiodarone discontinued
Rate control with metoprolol, increased the dose to 100 mg twice daily.
Started on Digoxin 125 mcg, daily. Check levels tomorrow.
Continue telemetry
Earlier planned on doing cardioversion after CRISTIAN, but echo showed evidence of MIREYA thrombus and severe MR, not a candidate for cardioversion.
Cardiology following
#Hypotension
Started on midodrine 2.5 mg 3 times daily
# Acute systolic CHF with reduced EF
Echo this admission 12/14: EF 15% visually. Diastolic function indeterminate. Severe mitral regurgitation with possible flow reversal in left pulmonary vein.
Restarted Lasix 60 mg, IV BID.
daily I/Os, 2gm sodium diet with fluid restriction to 48 oz/day
Monitor BMP on Lasix
Replete potassium as needed.
Continue metoprolol
Patient started on Farxiga
#Mild transaminitis
Likely related to amiodarone, discontinued
Will continue to monitor
#Hypokalemia
3.3 today
Repleted
Monitor BMP
DVT proph: Eliquis
Code Status - DNR
Anticipated Discharge: 24 - 48 hours
Subjective/Interval History
-
Date of Service: December 21, 2024
Patient does not report chest pain, palpitations. She took a small walk brand strategist, no dizziness, feels fine.
Objective Data
-
Labs:
Laboratory Results
12/21/24
04:10
Sodium 135
Potassium 3.3 L
Chloride 98
Carbon Dioxide 30
BUN 28 H
Creatinine 1.1 H
Glucose 87
Calcium 8.7
Total Bilirubin 0.3
AST 29
ALT 96 H
Alkaline Phosphatase 167 H
Vital Signs:
Vital Signs
Temp Pulse Resp BP Pulse Ox
98.3 F 77 18 95/73 94
12/21/24 03:49 12/21/24 06:00 12/21/24 03:49 12/21/24 03:50 12/21/24 03:49
I&O
12/20/24 12/21/24 12/22/24
06:59 06:59 06:59
Intake Total 360 / 360 420 / 420
Output Total 2550 / 2550 2650 / 2650
Balance -2190 / -2190 -0 / -0
Review of Systems
-
All other systems: Reviewed and negative (as per history.)
Physical Exam
-
General: No Apparent Distress
HEENT: Normocephalic and Atraumatic
Respiratory: Clear to Auscultation
Cardiac: S1/S2, Irregular Rhythm and Tachycardic
GI: Soft, Nontender, Nondistended and Normal Bowel Sounds
Musculoskeletal: Other (LE edema)
Skin: Warm and Dry
Neuro: Awake, Alert, Oriented and AO x 3
Psych: Calm
--- NOTE | 2024-12-21 08:52 | W.PN.CARDCBS ---
Addendum entered and electronically signed by Thompson Stewart DO 12/21/24 14:49:
I saw and examined the patient.
The E Learning Developer's note was reviewed and I agree with the note.
Comment:
Plan:
Continue IV diuresis
Over 2 L negative last 24 hours
Weight is unclear
Heart rate improved on Toprol and digoxin
Check dig level a.m.
Eventual consideration for RIGOBERTO inhibitor therapy likely as outpatient to get more room for blood pressure for now.
Blood pressure improved
Continue Eliquis for left atrial thrombus, cardioversion deferred due to thrombus.
Patient is more amenable to cardiac recommendations and appreciative
Original Note:
Today's Communication / Plan
-
Continue IV lasix
Creat stable.
HR improved on Toprol, digoxin
Check dig level 12/22
Continue Eliquis
Impression / Plan
-
Primary Traffic Controller Cable: Dr. Stewart
Impression:
Presented with SOB
Atrial fibrillation with rapid ventricular rates, new diagnosis
MIREYA thrombus by CRISTIAN 12/17/2024
Acute HFrEF
Nonischemic cardiomyopathy - no significant CAD by cath 08/23/23
EF by echo previously 30-35%, now 15%
Severe mitral regurgitation
Moderate tricuspid regurgitation
Medical noncompliance
(Has refused carvedilol as well as Entresto)
Hemochromatosis
Dyslipidemia
ECHO 04/23/2024: EF 40 to 45%, mildly dilated LV, stage II diastolic dysfunction, moderate MR, mild TR, mildly elevated PASP, 39 mmHg
ECHO 09/28/2024: EF 30 to 35%, global hypokinesis, mild concentric LVH, stage II diastolic dysfunction, at least moderate MR, mild to moderate TR, PAP 50 mmHg
ECHO 12/14/2024: EF 15%, severe global hypokinesis, MAC with severe MR with possible flow reversal in left pulmonary vein, trace AR, severe TR, PAP 28 mmHg, moderately dilated RA
CRISTIAN 12/17/2024: EF 10 to 15%, severe mitral regurgitation, moderate to severe TR. Left atrial appendage thrombus.
Plan:
-Presented with SOB and found to be in rapid afib and acute heart failure.
-Afib is a new diagnosis this admission. Remains in afib, but HRs improving on Toprol 100mg BID and digoxin 0.125 mcg.
-Check dig level in AM 12/22.
-Continue Eliquis 5mg BID for Afib. CRISTIAN 12/17 noted large MIREYA thrombus. Likely will take an extended period of time before clot resolves on AC.
-Diuresing with IV lasix 60mg BID. Weight now downtrending, down to 164lbs 12/21. Creat stable at 1.1.
-Breathing improving, but still w/ some LE edema. Continue tubigrips.
-Continue Toprol, Farxiga. No RIGOBERTO/ARB/Aldactone/Entresto due to hypotension. BP stable with midodrine 5mg TID.
-Severe MR noted on TTE 12/14 and CRISTIAN 12/17, will discuss options w/ primary faro dealer as OP.
-K down to 3.3. Agree w/ repletion.
-Follow up arranged.
Progress Note - Traffic Controller Cable
Subjective
Date of Service: December 21, 2024
Feeling better. Continues w/ some LE edema but breathing improving.
Objective
Labs:
12/19/24 04:32
12/21/24 04:10
Labs
Hgb 13.7 g/dL (12.0-16.0) 12/19/24 04:32
Hct 40.9 % (37.0-47.0) 12/19/24 04:32
Plt Count 206 10^3/uL (130-400) 12/19/24 04:32
Sodium 135 mmol/L (135-145) 12/21/24 04:10
Potassium 3.3 mmol/L (3.5-5.1) L 12/21/24 04:10
BUN 28 mg/dl (7-17) H 12/21/24 04:10
Creatinine 1.1 mg/dL (0.6-1.0) H 12/21/24 04:10
Glucose 87 mg/dl (70-99) 12/21/24 04:10
Vital Signs and I&O:
Vital Signs
Temp Pulse Resp BP Pulse Ox
97.6 F 77 18 95/73 95
12/21/24 08:17 12/21/24 06:00 12/21/24 08:17 12/21/24 03:50 12/21/24 08:17
Vital Signs
Temp Pulse Resp BP Pulse Ox
97.6 F 77 18 95/73 95
12/21/24 08:17 12/21/24 06:00 12/21/24 08:17 12/21/24 03:50 12/21/24 08:17
Intake & Output
12/19/24 12/20/24 12/21/24 12/22/24
06:59 06:59 06:59 06:59
Intake Total 480 / 480 360 / 360 420 / 420
Output Total 200 / 200 2550 / 2550 2650 / 2650
Balance 280 / 280 -2190 / -2190 -2230 / -2230
Physical Exam
Physical Exam
GEN: No distress, awake, alert, oriented x3
HEENT: supple, anicteric, mmm
LUNGS: CTA b/l, no wheezes/rales
CV: Irreg, S1/S2, 2/6 syst apex
EXT: No clubbing or cyanosis. +1 edema b/l LE
NEURO: Gross non-focal
SKIN: Warm, dry, no rash
[2024-12-21] MEDS: LASIX 60 MG IV ×2 (09:03→17:42)
[2024-12-21] MEDS: ProAmatine 5 MG PO ×3 (09:03→17:42)
[2024-12-21] MEDS: ELIQUIS 5 MG PO ×2 (09:04→19:50)
[2024-12-21] MEDS: TOPROL XL 100 MG PO ×2 (09:04→19:50)
[2024-12-21] MEDS: FARXIGA 10 MG PO (09:04)
[2024-12-21] MEDS: KCL 40 MEQ PO (09:04)
--- NOTE | 2024-12-21 11:37 | PTCARENOTE ---
Assumed care at 0700. patient walking in halls, feels better. HR 80-100's, A-fib, murmur. Lungs CTA, dependent edema, Tubigrip's applied, Lasix given. Call santana in reach
[2024-12-21] MEDS: LANOXIN 125 MCG PO (11:42)
--- NOTE | 2024-12-21 12:17 | CM ---
Reviewed chart. Met with Mrs. Silva to review discharge plans. She states she is feeling better. She states she has been ambulating a little. Prior to admission she resides alone in a third floor apartment with an elevator. Prior to
admission she was independent with ambulation and adls. She does not have any DME in the home. She has a prescription plan with [facility] and uses [facility]. Medical work-up in progress. The discharge plan is to return home when medically
stable.
--- NOTE | 2024-12-21 21:35 | PTCARENOTE ---
Rec'd pt at change of shift. Pt AAO*3, in AFib on TELE monitor with HR in the 90's, and AAO*3. Pt denies any pain or discomfort. Pt resting with call santana in reach and plan of care ongoing.
--- NOTE | 2024-12-21 21:37 | PTCARENOTE ---
Pt remains in afib with HR in the s. Plan of care ongoing.
[2024-12-22] VITALS (13 sets, daily range): BP systolic 99–135; BP diastolic 65–112; BMI 27.3
[2024-12-22 03:39] LABS: % Basophils 0.8 % (0-2); % Eosinophils 2.5 % (0-6); % Immature Granulocytes 0.6 % (0-0.5); % Monocytes 10.2 % (1.7-9.3); % Neutrophils 58.9 % (42.2-75.2); Absolute Basophils 0.1 10^3/uL (0-0.2); Absolute Eosinophils 0.2 10^3/uL (0-0.7); Absolute Monocytes 0.7 10^3/uL (0.1-0.6); Absolute Neutrophils 4.3 10^3/uL (1.4-6.5); Hematocrit 44.3 % (37.0-47.0); Mean Corp Hgb Conc. 33.9 g/dL (33.0-37.0); Mean Corpuscular Hgb 35.2 pg (27.0-31.0); Mean Platelet Volume 11.1 fL (7.4-10.4); Nucleated Red Blood Cells % 0 %; Platelet Count 251 10^3/uL (130-400); Red Blood Cell Count 4.26 10^6/uL (4.20-5.40); Red Cell Dist. Width 13.1 % (11.5-14.5); White Blood Cell Count 7.3 10^3/uL (4.8-10.8)
[2024-12-22 04:03] LABS: ALT (SGPT) 83 U/L (0-35); AST (SGOT) 27 U/L (14-36); Albumin 3.2 g/dl (3.5-5.0); Alkaline Phosphatase 154 U/L (38-126); Blood Urea Nitrogen 26 mg/dl (7-17); Calcium 8.8 mg/dl (8.4-10.2); Carbon Dioxide 28 mmol/L (22-30); Chloride 98 mmol/L (98-107); Estimated Creatinine Clearance 47 ml/min; Glucose 102 mg/dl (70-99); Potassium 3.6 mmol/L (3.5-5.1); Sodium 134 mmol/L (135-145); Total Bilirubin 0.3 mg/dl (0.2-1.3); Total Protein 5.4 g/dl (6.3-8.2); eGFR 53.39
[2024-12-22 04:40] LABS: Digoxin < 0.4 ng/ml (0.8-2.0)
--- NOTE | 2024-12-22 08:32 | W.PN.CARDCBS ---
Addendum entered and electronically signed by Rob Talbot MD 12/22/24 09:36:
I saw and examined the patient.
The SLATE TRIMMER or PA's note was reviewed and I agree with the note.
Comment: General: Well developed, well nourished in NAD.
Neck: Supple, no JVD, HJR, carotids +2 B/L, no bruits bilaterally.
Heart: Non displaced PMI, irregular, no murmurs, No S3, S4, no rubs.
Lungs: Scattered rhonchi
Extremities: Mild edema bilaterally
Neuro: Grossly nonfocal, awake, alert and oriented x3.
She appears improved with weight loss since admission. She is concerned about edema. Will continue IV Lasix for 1 more day and changed to p.o. Lasix 60 mg p.o. twice daily on 12/23. Should be stable for discharge on 12/23. Discussed with primary
service. Ejection fraction remains severely reduced. Likely due to tachyarrhythmia. No benefit with LifeVest is felt to be nonischemic. Taoist of sinus rhythm may help ejection fraction and unclear how much of MR is a residual of reduced EF
or a cause of the reduced EF.
Original Note:
Today's Communication / Plan
-
continue eliquis, toprol, digoxin, farxiga, midodrine
continue IV lasix
replete K
continue compression stockings
DC planning
Impression / Plan
-
Primary Injection Operator: Dr. Stewart
Impression:
Presented with SOB
Atrial fibrillation with rapid ventricular rates, new diagnosis
MIREYA thrombus by CRISTIAN 12/17/2024
Acute HFrEF
Nonischemic cardiomyopathy - no significant CAD by cath 08/23/23
EF by echo previously 30-35%, now 15%
Severe mitral regurgitation
Moderate tricuspid regurgitation
Medical noncompliance
(Has refused carvedilol as well as Entresto)
Hemochromatosis
Dyslipidemia
ECHO 04/23/2024: EF 40 to 45%, mildly dilated LV, stage II diastolic dysfunction, moderate MR, mild TR, mildly elevated PASP, 39 mmHg
ECHO 09/28/2024: EF 30 to 35%, global hypokinesis, mild concentric LVH, stage II diastolic dysfunction, at least moderate MR, mild to moderate TR, PAP 50 mmHg
ECHO 12/14/2024: EF 15%, severe global hypokinesis, MAC with severe MR with possible flow reversal in left pulmonary vein, trace AR, severe TR, PAP 28 mmHg, moderately dilated RA
CRISTIAN 12/17/2024: EF 10 to 15%, severe mitral regurgitation, moderate to severe TR. Left atrial appendage thrombus.
Plan:
-Presented with SOB and found to be in rapid afib and acute heart failure.
-afib new diagnosis this admission. she underwent CRISTIAN which showed large MIREYA thrombus and therefore CV was cancelled. plan for rate control at this time. continue toprol 100mg BID and digoxin 0.125mg daily. dig level stable
-continue eliquis. will discuss when would consider repeat CRISTIAN/CV in office, felt likely to take 'extended period of time' before clot resolves fully
-she remains with LE edema, new since admission, however SOB has improved. weight down to 163 pounds. Cr stable at 1.1. continue IV lasix, would attempt to transition to po 60mg BID in next 24 hours. was on po lasix 20mg daily prior to admission
-replete K
-continue compression stockings
-Continue Toprol, Farxiga. No RIGOBERTO/ARB/Aldactone/Entresto due to hypotension. BP stable with midodrine 5mg TID.
-Severe MR noted on TTE 12/14 and CRISTIAN 12/17, will discuss options for intervention as well as timing with primary pocket stitcher as OP.
-reviewed activity and dietary restrictions with patient 12/22. also discussed compliance and she expresses understanding of importance.
-OP cardiac follow up arranged
-d/w hospitalist
Progress Note - Injection Operator
Subjective
Date of Service: December 22, 2024
reports continued LE edema. denies SOB, palpitations.
Objective
Labs:
12/22/24 03:00
12/22/24 03:00
Labs
Hgb 15.0 g/dL (12.0-16.0) 12/22/24 03:00
Hct 44.3 % (37.0-47.0) 12/22/24 03:00
Plt Count 251 10^3/uL (130-400) D 12/22/24 03:00
Sodium 134 mmol/L (135-145) L 12/22/24 03:00
Potassium 3.6 mmol/L (3.5-5.1) 12/22/24 03:00
BUN 26 mg/dl (7-17) H 12/22/24 03:00
Creatinine 1.1 mg/dL (0.6-1.0) H 12/22/24 03:00
Glucose 102 mg/dl (70-99) H 12/22/24 03:00
Digoxin < 0.4 ng/ml (0.8-2.0) L 12/22/24 03:00
Vital Signs and I&O:
Vital Signs
Temp Pulse Resp BP Pulse Ox
97.5 F 83 16 119/77 97
12/22/24 08:00 12/22/24 05:00 12/22/24 08:00 12/22/24 03:03 12/22/24 08:00
Vital Signs
Temp Pulse Resp BP Pulse Ox
97.5 F 83 16 119/77 97
12/22/24 08:00 12/22/24 05:00 12/22/24 08:00 12/22/24 03:03 12/22/24 08:00
Intake & Output
12/20/24 12/21/24 12/22/24 12/23/24
07:59 07:59 07:59 07:59
Intake Total 360 / 360 420 / 420 960 / 960
Output Total 2550 / 2550 2650 / 2650 1250 / 1950 700 / 700
Balance -2190 / -2190 -2230 / -2230 -290 / -990 - / -
Physical Exam
Physical Exam
GEN: No distress, awake, alert, oriented x3. sitting in chair
HEENT: supple, anicteric, mmm, eomi
LUNGS: CTA B/L, no wheezes/rales
CV: Irreg, S1/S2, 2/6 murmur
ABD: soft, BS+, NT/ND
EXT: No cyanosis, clubbing. 2+ edema of LLE, 3+ edema of RLE
NEURO: Gross non-focal
SKIN: Warm, pink, dry. No rash
--- NOTE | 2024-12-22 08:38 | W.PN.HOSP.TC ---
Addendum entered and electronically signed by Emmy Merrill MD 12/22/24 20:08:
I saw and evaluated the patient independently. I reviewed the resident�s note and agree with findings and plan as documented by Dr. Fonseca.
GENERAL: well developed, well nourished, female in no apparent distress
HEENT: NC/AT--no O2 requirements
HEART: irreg irreg
LUNGS : clear to auscultation bilaterally
ABDOM: soft, nontender, nondistended, + bowel sounds
EXT: no cyanosis, clubbing-- 1+ pedal edema
NEUROLOGIC: grossly intact
New onset AFIB with RVR --on metoprolol, dig, eliquis--could not do cardioversion due to MIREYA clot--amio stopped--TSH WNL--cath without CAD--apprec cards--no benefit likely with lifevest--suspect tachycardia induced
Hypotension--not shock--cont midodrine
Acute systolic CHF with reduced EF--Echo this admission 12/14: EF 15% visually. Diastolic function indeterminate. Severe mitral regurgitation with possible flow reversal in left pulmonary vein--lasix IV for diuresis--weights down--transition to oral
and pt for d/c tomorrow--Replete potassium as needed--Continue metoprolol, Farxiga
Mild transaminitis--Likely related to amiodarone, discontinued--improved
Hypokalemia--replete as needed
DVT proph: Eliquis
Code Status - DNR
Original Note:
Today's Communication/Plan
-
Continue IV Lasix.
Assessment / Plan
Assessment / Plan
74-year-old female with past medical history of congestive heart failure admitted for management of A-fib with RVR.
Impression/ Plan
# New onset AFIB with RVR
Rate control with metoprolol, increased the dose to 100 mg twice daily.Continue.
Started on Digoxin 125 mcg, daily. Digoxin level today <0.4likely due to discontinuing Coreg.
TSH WNL at 2.79
off cardizem drip,
Started on Eliquis 5 mg BID, continue
Amiodarone discontinued
Continue telemetry
Earlier planned on doing cardioversion after CRISTIAN, but echo showed evidence of MIREYA thrombus and severe MR, not a candidate for cardioversion.
Cardiology following- No benefit with Lifevest as it may be likely nonischemic.
#Hypotension
Started on midodrine 2.5 mg 3 times daily. Continue.
# Acute systolic CHF with reduced EF
Echo this admission 12/14: EF 15% visually. Diastolic function indeterminate. Severe mitral regurgitation with possible flow reversal in left pulmonary vein.
Restarted Lasix 60 mg, IV BID. Continue IV lasix for 1 more day until tomorrow, transition to PO at discharge.
daily I/Os, 2gm sodium diet with fluid restriction to 48 oz/day
Monitor BMP on Lasix
Replete potassium as needed.
Continue metoprolol
Patient started on Farxiga
#Mild transaminitis
Likely related to amiodarone, discontinued
resolving
Will continue to monitor
#Hypokalemia
3.6 today
Repleted
Monitor BMP
DVT proph: Eliquis
Code Status - DNR
Anticipated Discharge: Within 24 hours
Subjective/Interval History
-
Date of Service: December 22, 2024
Patient does not report any chest pain, palpitations, SOB.
Objective Data
-
Labs:
Laboratory Results
12/22/24
03:00
WBC 7.3
Hgb 15.0
Hct 44.3
Plt Count 251 D
Sodium 134 L
Potassium 3.6
Chloride 98
Carbon Dioxide 28
BUN 26 H
Creatinine 1.1 H
Glucose 102 H
Calcium 8.8
Total Bilirubin 0.3
AST 27
ALT 83 H
Alkaline Phosphatase 154 H
Vital Signs:
Vital Signs
Temp Pulse Resp BP Pulse Ox
97.5 F 83 16 119/77 97
12/22/24 08:00 12/22/24 05:00 12/22/24 08:00 12/22/24 03:03 12/22/24 08:00
I&O
12/21/24 12/22/24 12/23/24
06:59 06:59 06:59
Intake Total 420 / 420 960 / 960
Output Total 2650 / 2650 1250 / 1250 700 / 700
Balance -2230 / -2230 -290 / -290 -700 / -700
Physical Exam
-
General: No Apparent Distress
HEENT: Normocephalic and Atraumatic
Respiratory: Clear to Auscultation
Cardiac: S1/S2, Irregular Rhythm and Murmur
GI: Soft, Nontender, Nondistended and Normal Bowel Sounds
Musculoskeletal: Edema, Right Lower Extrem and Edema, Left Lower Extrem
Skin: Warm and Dry
Neuro: Awake, Alert, Oriented and AO x 3
Psych: Calm
[2024-12-22] MEDS: LASIX 60 MG IV ×2 (08:59→15:41)
[2024-12-22] MEDS: ProAmatine 5 MG PO ×3 (09:00→18:03)
[2024-12-22] MEDS: ELIQUIS 5 MG PO ×2 (09:00→20:25)
[2024-12-22] MEDS: KCL 20 MEQ PO (09:00)
[2024-12-22] MEDS: FARXIGA 10 MG PO (09:00)
[2024-12-22] MEDS: LASIX IV (09:01)
[2024-12-22] MEDS: TOPROL XL 100 MG PO ×2 (09:01→20:25)
--- NOTE | 2024-12-22 09:40 | PTCARENOTE ---
received patient sitting up in chair eating breakfast. monitor shows Afib, IV Lasix continues, edema still present bilat. LE. VSS. Tubigrip applied as per order. K supplemented this am as ordered.
[2024-12-22] MEDS: LANOXIN 125 MCG PO (12:54)
--- NOTE | 2024-12-22 13:21 | CM ---
Reviewed cahrt. Met with Mrs. Silva to review discharge plans. She states she feels well and maybe able to go home soon. Prior to admission she resides alone in a third floor apartment. She has an elevator. Prior to admission she was
independent with ambulation and adls. She does not have any DME in the home. She has a prescription plan with [facility] and [facility]. Medical work up in progress. The discharge plan is to return home when medically stable.
--- NOTE | 2024-12-22 23:00 | PTCARENOTE ---
Rec'd at change of shift. Pt updated on plan of care. Afib on TELE monitor, VSS, and AAO*3. Pt denies any pain or discomfort, while verbalizing safety. See flowsheet and Mar for full assessment. Pt resting with call santana in reach.
[2024-12-23 04:19] VITALS: BP 102/62
[2024-12-23 04:40] LABS: Hematocrit 43.3 % (37.0-47.0); Hemoglobin 14.9 g/dL (12.0-16.0); Mean Corp Hgb Conc. 34.4 g/dL (33.0-37.0); Mean Corpuscular Hgb 35.2 pg (27.0-31.0); Mean Corpuscular Volume 102.4 fL (81.0-99.0); Mean Platelet Volume 10.9 fL (7.4-10.4); Platelet Count 206 10^3/uL (130-400); Red Blood Cell Count 4.23 10^6/uL (4.20-5.40); Red Cell Dist. Width 12.9 % (11.5-14.5); White Blood Cell Count 6.9 10^3/uL (4.8-10.8)
[2024-12-23 05:11] LABS: ALT (SGPT) 60 U/L (0-35); AST (SGOT) 24 U/L (14-36); Albumin 2.9 g/dl (3.5-5.0); Alkaline Phosphatase 114 U/L (38-126); Blood Urea Nitrogen 24 mg/dl (7-17); Calcium 8.7 mg/dl (8.4-10.2); Carbon Dioxide 28 mmol/L (22-30); Chloride 98 mmol/L (98-107); Estimated Creatinine Clearance 57 ml/min; Glucose 100 mg/dl (70-99); Potassium 3.3 mmol/L (3.5-5.1); Sodium 132 mmol/L (135-145); Total Bilirubin 0.3 mg/dl (0.2-1.3); eGFR > 60.00
[2024-12-23 06:00] VITALS: BMI 27.3
[2024-12-23] MEDS: KCL 40 MEQ PO ×2 (07:00→10:14)
[2024-12-23 07:13] VITALS: BP 105/82
--- NOTE | 2024-12-23 07:42 | W.PN.CARDCBS ---
Today's Communication / Plan
-
Changed to Lasix 60 p.o. twice daily and discharge to home
Impression / Plan
-
Primary Home Economics Teacher: Dr. Stewart
Impression:
Presented with SOB
Atrial fibrillation with rapid ventricular rates, new diagnosis
MIREYA thrombus by CRISTIAN 12/17/2024
Acute HFrEF
Nonischemic cardiomyopathy - no significant CAD by cath 08/23/23
EF by echo previously 30-35%, now 15%
Severe mitral regurgitation
Moderate tricuspid regurgitation
Medical noncompliance
(Has refused carvedilol as well as Entresto)
Hemochromatosis
Dyslipidemia
ECHO 04/23/2024: EF 40 to 45%, mildly dilated LV, stage II diastolic dysfunction, moderate MR, mild TR, mildly elevated PASP, 39 mmHg
ECHO 09/28/2024: EF 30 to 35%, global hypokinesis, mild concentric LVH, stage II diastolic dysfunction, at least moderate MR, mild to moderate TR, PAP 50 mmHg
ECHO 12/14/2024: EF 15%, severe global hypokinesis, MAC with severe MR with possible flow reversal in left pulmonary vein, trace AR, severe TR, PAP 28 mmHg, moderately dilated RA
CRISTIAN 12/17/2024: EF 10 to 15%, severe mitral regurgitation, moderate to severe TR. Left atrial appendage thrombus.
Plan:
Her weight is unchanged but she feels edema has improved. She is stable for discharge from cardiology viewpoint we will change to Lasix 60 mg p.o. twice daily. Discussed with primary service. Follow-up arranged
Progress Note - Home Economics Teacher
Subjective
Date of Service: December 23, 2024
No complaints. She feels edema has improved.
Objective
Labs:
12/23/24 04:28
12/23/24 04:28
Labs
Hgb 14.9 g/dL (12.0-16.0) 12/23/24 04:28
Hct 43.3 % (37.0-47.0) 12/23/24 04:28
Plt Count 206 10^3/uL (130-400) 12/23/24 04:28
Sodium 132 mmol/L (135-145) L 12/23/24 04:28
Potassium 3.3 mmol/L (3.5-5.1) L 12/23/24 04:28
BUN 24 mg/dl (7-17) H 12/23/24 04:28
Creatinine 0.9 mg/dL (0.6-1.0) 12/23/24 04:28
Glucose 100 mg/dl (70-99) H 12/23/24 04:28
Digoxin < 0.4 ng/ml (0.8-2.0) L 12/22/24 03:00
Vital Signs and I&O:
Vital Signs
Temp Pulse Resp BP Pulse Ox
97.5 F 89 16 105/82 99
12/23/24 07:14 12/23/24 07:13 12/23/24 07:14 12/23/24 07:13 12/23/24 07:14
Vital Signs
Temp Pulse Resp BP Pulse Ox
97.5 F 89 16 105/82 99
12/23/24 07:14 12/23/24 07:13 12/23/24 07:14 12/23/24 07:13 12/23/24 07:14
Intake & Output
12/21/24 12/22/24 12/23/24 12/24/24
06:59 06:59 06:59 06:59
Intake Total 420 / 420 960 / 960 480 / 480
Output Total 2650 / 2650 1250 / 1250 1300 / 1300
Balance -2230 / -2230 -290 / -290 -820 / -820
Physical Exam
Physical Exam
General: Well developed, well nourished in NAD.
Neck: Supple, no JVD, HJR, carotids +2 B/L, no bruits bilaterally.
Heart: Non displaced PMI, RRR, no murmurs, No S3, S4, no rubs.
Lungs: Clear to auscultation bilaterally, no wheeze, rhonchi, rubs bilaterally,
normal expiratory phase.
Extremities: Mild lower extremity edema bilaterally.
Neuro: Grossly nonfocal, awake, alert and oriented x3.
[2024-12-23] MEDS: LASIX 60 MG PO (08:22)
[2024-12-23] MEDS: ProAmatine 5 MG PO ×2 (08:22→12:26)
[2024-12-23] MEDS: FARXIGA 10 MG PO (08:22)
[2024-12-23] MEDS: ELIQUIS 5 MG PO (08:22)
[2024-12-23] MEDS: TOPROL XL 100 MG PO (08:22)
--- NOTE | 2024-12-23 08:38 | PTCARENOTE ---
Pt AOx3, no complaints of pain or discomfort. Afib on tele monitor, VSS. Plan for dc later today. Independent OOB with ADLs. Call santana within reach.
--- NOTE | 2024-12-23 08:42 | W.PN.HOSP.TC ---
Addendum entered and electronically signed by Emmy Merrill MD 12/23/24 19:35:
I saw and evaluated the patient independently. I reviewed the resident�s note and agree with findings and plan as documented by Dr. Fonseca.
GENERAL: well developed, well nourished, female in no apparent distress
HEENT: NC/AT--no O2 requirements
HEART: irreg irreg
LUNGS : clear to auscultation bilaterally
ABDOM: soft, nontender, nondistended, + bowel sounds
EXT: no cyanosis, clubbing-- 1+ pedal edema
NEUROLOGIC: grossly intact
New onset AFIB with RVR --on metoprolol, dig, eliquis--could not do cardioversion due to MIREYA clot--amio stopped--TSH WNL--cath without CAD--apprec cards--no benefit likely with lifevest--suspect tachycardia induced
Hypotension--not shock--cont midodrine
Acute systolic CHF with reduced EF--Echo this admission 12/14: EF 15% visually. Diastolic function indeterminate. Severe mitral regurgitation with possible flow reversal in left pulmonary vein--lasix IV for diuresis--weights down--transition to oral
and pt for d/c tomorrow--Replete potassium as needed--Continue metoprolol, Farxiga
Mild transaminitis--Likely related to amiodarone, discontinued--improved
Hypokalemia--replete as needed
DVT proph: Eliquis
Code Status - DNR
OK for d/c
Original Note:
Today's Communication/Plan
-
PO Lasix
Assessment / Plan
Assessment / Plan
74-year-old female with past medical history of congestive heart failure admitted for management of A-fib with RVR.
Impression/ Plan
# New onset AFIB with RVR
Rate control with metoprolol, increased the dose to 100 mg twice daily.Continue.
Started on Digoxin 125 mcg, daily.
TSH WNL at 2.79
off cardizem drip,
Started on Eliquis 5 mg BID, continue
Amiodarone discontinued
Continue telemetry
Earlier planned on doing cardioversion after CRISTIAN, but echo showed evidence of MIREYA thrombus and severe MR, not a candidate for cardioversion.
Cardiology following- No benefit with Lifevest as it may be likely nonischemic.
#Hypotension
Started on midodrine 2.5 mg 3 times daily. Continue.
# Acute systolic CHF with reduced EF
Echo this admission 12/14: EF 15% visually. Diastolic function indeterminate. Severe mitral regurgitation with possible flow reversal in left pulmonary vein.
Restarted Lasix 60 mg, IV BID. transition to PO Lasix.
daily I/Os, 2gm sodium diet with fluid restriction to 48 oz/day
Monitor BMP on Lasix
Replete potassium as needed.
Continue metoprolol
Patient started on Farxiga
#Mild transaminitis
Likely related to amiodarone, discontinued
resolving
Will continue to monitor
#Hypokalemia
3.3 today
Repleted
Monitor BMP
DVT proph: Eliquis
Code Status - DNR
Anticipated Discharge: Today
Subjective/Interval History
-
Date of Service: December 23, 2024
Patient reports no acute overnight issues.
Objective Data
-
Labs:
Laboratory Results
12/23/24
04:28
WBC 6.9
Hgb 14.9
Hct 43.3
Plt Count 206
Sodium 132 L
Potassium 3.3 L
Chloride 98
Carbon Dioxide 28
BUN 24 H
Creatinine 0.9
Glucose 100 H
Calcium 8.7
Total Bilirubin 0.3
AST 24
ALT 60 H
Alkaline Phosphatase 114
Vital Signs:
Vital Signs
Temp Pulse Resp BP Pulse Ox
97.5 F 106 16 105/82 99
12/23/24 07:14 12/23/24 08:22 12/23/24 07:14 12/23/24 08:22 12/23/24 07:14
I&O
12/22/24 12/23/24 12/24/24
06:59 06:59 06:59
Intake Total 960 / 960 480 / 480
Output Total 1250 / 1250 1300 / 1300
Balance -290 / -290 -820 / -820
--- NOTE | 2024-12-23 09:20 | CM ---
Addendum entered by Estee Harrell 12/23/24 12:39:
Reviewed chart. Mrs. Silva called me to her room to states she changed her mind and wouild like [facility]. Telephone call to [facility] to make the referral. Sent referral.
Original Note:
Reviewed chart. Met with Mrs. Silva to review discharge plans. she states she feels well and maybe able to go home soon. We reviewed [facility] and at this time she is declining [facility] Services. Prior to admission she resides alone in a third
floor apartment with an elevator. Prior to admission she was independent with ambulation and als. She has been ambulating in the room. She does not have any DME in the home. She has a prescription plan with [facility]. and uses [facility].
Medical work-up in progress. The discharge plan is to return home when medically stable.
[2024-12-23 12:25] VITALS: BP 104/77
[2024-12-23] MEDS: LANOXIN 125 MCG PO (12:26)
--- NOTE | 2024-12-23 16:18 | W.DCSUMMARY ---
Addendum entered and electronically signed by Emmy Merrill MD 12/23/24 19:37:
Read, reviewed, and agree. See same day progress note for additional details. Time spent coordinating care, DC planning, review of DC plan of care with resident, transition of care, review of records in EMR, med rec, consults, notes, d/w
consultants, nursing, family, and CM = 40 minutes
Original Note:
Discharge Summary
Discharge Data
Date of Admission: 12/12/24
Date of Discharge: 12/23/24
Total time spent discharging patient (in min): 40
-
Pending Results: No
Hospital Course
Discharging Physician : Dr. Emmy Merrill, Dr. Price Fonseca
Disposition : Home
Primary care physician : Sathish Chapman
Principal Discharge diagnosis : Atrial fibrillation with RVR
Chronic Discharge diagnosis : Heart failure with reduced ejection fraction, hemochromatosis, dyslipidemia
Hospital Course : 74-year-old female with past medical history significant for CHF presented to the emergency department with approximately 10 days of worsening dyspnea on exertion, increasing ankle edema and shortness of breath. Patient has been
instructed to take Coreg by her enrollment advisor but she stopped taking it since November 18.
In the emergency department she was afebrile with a temp of nine 7.7, blood pressure was 110/83 with a pulse of 140 she was satting 98% on room air. ECG showed new onset atrial fibrillation at a rate of 168 with occasional PVCs. No acute
ischemia. BNP was elevated at 5800. Chest x-ray shows small right pleural effusion with some atelectasis. CBC was mostly unremarkable with a hemoglobin of 16, sodium was 131 BUN was elevated at 47 with a creatinine of 1.0. TSH normal.
Cardiology was consulted. She was started on diltiazem drip, and Eliquis. [id number] score 4. Metoprolol added for rate control. Patient also has a history of CHF with reduced ejection fraction�last echo 10/14/2024 showed ejection fraction of
30 to 35%. Was started on IV Lasix, also offered GDMT, daily iron dose, 2 g sodium diet with fluid restriction to 48 ounce Per day. Her echo was repeated which showed severely reduced ejection fraction of 15%. She was also briefly on amiodarone
drip for additional rate control. Patient had mild transaminitis after starting on amiodarone, and which has resolved after discontinuation. Cardiology plan on doing CRISTIAN/cardioversion.CRISTIAN showed evidence of LA appendage thrombus, EF 10-15% with
severe MR. Patient is no longer a candidate for cardioversion. Her metoprolol dose has been uptitrated to 100 mg twice daily for better rate control. Her Lasix dose increased to 60 mg IV twice daily. Digoxin and Farxiga added. Midodrine added
for her hypotension.
Patient has clinically improved, vitals stable, heart rate well-controlled, lower extremity edema improving. Patient is stable to be discharged home. She is transitioned to per oral Lasix at discharge. Also added oral potassium supplementation
daily. Advised to follow-up with cardiology as outpatient. Follow-up with primary care physician within a week.
Important imaging findings :
Chest x-ray 12/12/2024� There is small right-sided pleural effusion with underlying pneumonia versus compressive atelectasis at the right lung base
Transesophageal echo 12/17/2024�
Left ventricle is mildly dilated. Severely reduced left ventricular systolic
function. Global hypokinesis. Mild concentric left ventricular hypertrophy.
Left ventricular ejection fraction is 10-15%.
Normal right ventricular size. Mildly reduced right ventricular systolic
function.
Severely dilated left atrium.
Moderately dilated right atrium.
A large mobile thrombus is present in the left atrial appendage.
Mildly thickened mitral valve leaflets. The posterior leaflet is restricted.
There is a somewhat eccentric jet of severe mitral regurgitation. Peak E wave
velocity 1.3 m/s. Mean mitral gradient 1 mmHg. Aortic valve area by 3D
planimetry 4.9 cm sq., posterior leaflet length 11 to 12 mm.
Moderate to severe tricuspid regurgitation.
Systolic flow reversal (suggestive of severe MR) in the pulmonary veins.
Discharge Plan
-
Patient Disposition: Home (Routine Discharge)
Discharge Diagnosis/Procedures: Atrial fibrillation, CHF with reduced EF.
Diet: 2 Gram Sodium and Restrict fluids to 48 oz
Blood Work: BMP/magnesium in 1 week
Specialty Instructions: Weigh Daily- Call MD for wt gain/loss 3 lbs overnight/5 lbs in 1 week
Instructions: *[facility] Heart Failure Instructions
Referrals:
[facility] Visiting Nurse [Outside]
Sathish Chapman DO [Family Provider] - in less than 1 week
Savannah Mcnair CRNP [Specified Professional Personl] - 12/28/24 2:20 pm (You have a follow up visit with Dr. Stewart's [employer] IDENTITY MANAGEMENT CONSULTANT, Savannah, at the [place] office. Please call with questions.)
Prescriptions:
New
Eliquis 5 mg Tablet
5 mg PO BID Qty: 60 0RF
dapagliflozin propanediol 10 mg Tablet
10 mg PO DAILY Qty: 30 0RF
digoxin 125 mcg (0.125 mg) Tablet
125 mcg PO NOON Qty: 30 0RF
metoprolol succinate 100 mg Tablet Extended Release 24 Hr
100 mg PO BID Qty: 60 0RF
midodrine 5 mg Tablet
5 mg PO TID@0800,1300,1800 Qty: 90 0RF
furosemide 20 mg Tablet
60 mg PO BID AT 0800,1600 Qty: 180 0RF
potassium chloride 20 mEq tablet,ER particles/crystals
20 meq PO BID Qty: 60 0RF
Continued
therapeutic multivitamin Tablet
1 tab PO DAILY
vitamin B complex Tablet
1 tab PO DAILY
coenzyme Q10 [CoQ-10] 100 mg Capsule
100 mg PO DAILY
Discontinued
furosemide 20 mg Tablet
20 mg PO DAILY 30 Days Qty: 30 0RF
Patient Comments:
12/12/24: Awaiting electrolyte test to determine KCl dosing to go along with the Lasix.
furosemide 20 mg Tablet
20 mg PO DAILYPRN PRN (Reason: swelling)
Patient Comments:
12/12/24: to take in addition to initial dose if needed
Discharge Orders:
Discharge Patient (As Directed); Ordered 12/23/24
Ordered By: Price Fonseca
Care Plan Goals
Care Plan Goals:
Problem: Readiness for enhanced knowledge related to diagnosis and treatment plan
Goal: Understand your diagnosis and treatment plan needs, including medications if applicable.
Instructions: Know your diagnosis, underlying causes and treatment plan options, including medications if applicable. Consult with your health care team to learn about your diagnosis and treatment plan, including medications if applicable.
Discharge Date and Time
Discharge Date/Time: 12/23/24 13:41
Print Language: [place]IZ[place]
== END 2024-12-23 13:41 | disposition home or self-care (01) | DRG 308 ==
LOC: IVU 20:45
PROVIDERS: Internal Medicine; Nurse Practitioner Gerontology; Physician Assistant; Student in an Organized Health Care Education/Training Program; ADMITTING PHYSICIAN Internal Medicine; ATTENDING PHYSICIAN Internal Medicine; CONSULT PHYSICIAN Internal Medicine Cardiovascular Disease; EMERGENCY PHYSICIAN Emergency Medicine; FAMILY PHYSICIAN Family Medicine
DX: I48.20 Chronic atrial fibrillation, unspecified (principal); I50.23 Acute on chronic systolic (congestive) heart failure; J98.11 Atelectasis; E83.118 Other hemochromatosis; E78.5 Hyperlipidemia, unspecified; I49.3 Ventricular premature depolarization; R74.01 Elevation of levels of liver transaminase levels; I42.8 Other cardiomyopathies; I08.1 Rheumatic disorders of both mitral and tricuspid valves; Z91.199 Patient's noncompliance with other medical treatment and regimen due to unspecified reason; Z66 Do not resuscitate; E87.6 Hypokalemia; Z79.899 Other long term (current) drug therapy; Z87.891 Personal history of nicotine dependence; Z88.1 Allergy status to other antibiotic agents; I51.3 Intracardiac thrombosis, not elsewhere classified
CPT/HCPCS: 71045; 80048; 80053; 80061; 80162; 83735; 83880; 84443; 85025; 85027; 93005; 93306; 93312; 93320; 93325; 96365; 96366; 96375; 99285

== ENCOUNTER 2025-03-02 07:39 | Day surgery (SDC) | payer OTHER, SELFPAY ==
--- NOTE | 2025-03-02 15:36 | ITS.CL.CARDI ---
Drop Machine Operator - Cardioversion
Cardioversion
Procedure Report:
Date of Procedure: March 02 2024
Procedure: Cardioversion
Indication: Symptomatic atrial fibrillation
Performing Physician: Thompson Stewart DO, FACC
Technique: The patient was brought to the holding area. Signed informed consent was obtained. A time out was called and performed. The patient was anesthetized by the anesthesia service. Anticoagulation status was reviewed and appropriate. R2 pads
were placed anteriorly and posteriorly. Following successful CRISTIAN, a 200 J synchronized biphasic shock restored normal sinus rhythm without significant bradycardia. There were no complications.
Conclusion: Uncomplicated cardioversion from atrial fibrillation to sinus rhythm.
Recommendation: Routine post cardioversion care. Continue keno terminal operator anticoagulation.
== END 2025-03-02 12:15 ==
LOC: CATH 07:39
PROVIDERS: ATTENDING PHYSICIAN Nuclear Medicine Nuclear Cardiology; FAMILY PHYSICIAN Family Medicine
DX: I48.19 Other persistent atrial fibrillation (principal); I50.22 Chronic systolic (congestive) heart failure; I42.8 Other cardiomyopathies; I34.0 Nonrheumatic mitral (valve) insufficiency; E78.5 Hyperlipidemia, unspecified; E83.119 Hemochromatosis, unspecified; Z87.891 Personal history of nicotine dependence; Z79.01 Long term (current) use of anticoagulants
CPT/HCPCS: 93312; 93320; 93325; 92960; 93005

== ENCOUNTER 2025-04-28 05:57 | Day surgery (SDC) | payer OTHER, SELFPAY ==
[2025-04-22 08:40] LABS: % Basophils 0.6 % (0-2); % Eosinophils 0.9 % (0-6); % Immature Granulocytes 0.3 % (0-0.5); % Lymphocytes 31.4 % (20.5-51.1); % Monocytes 11.2 % (1.7-9.3); % Neutrophils 55.6 % (42.2-75.2); Absolute Basophils 0.1 10^3/uL (0-0.2); Absolute Eosinophils 0.1 10^3/uL (0-0.7); Absolute Lymphocytes 2.5 10^3/uL (1.2-3.4); Absolute Monocytes 0.9 10^3/uL (0.1-0.6); Absolute Neutrophils 4.4 10^3/uL (1.4-6.5); Hematocrit 44.3 % (37.0-47.0); Hemoglobin 14.9 g/dL (12.0-16.0); Mean Corp Hgb Conc. 33.6 g/dL (33.0-37.0); Mean Corpuscular Hgb 35.8 pg (27.0-31.0); Mean Corpuscular Volume 106.5 fL (81.0-99.0); Mean Platelet Volume 11.4 fL (7.4-10.4); Nucleated Red Blood Cells % 0 %; Platelet Count 188 10^3/uL (130-400); Red Blood Cell Count 4.16 10^6/uL (4.20-5.40); Red Cell Dist. Width 15.3 % (11.5-14.5); White Blood Cell Count 7.8 10^3/uL (4.8-10.8)
[2025-04-22 08:51] LABS: INR 1.21; PT 15.8 Sec (11.4-14.6)
[2025-04-22 09:49] LABS: ALT (SGPT) 73 U/L (0-35); AST (SGOT) 64 U/L (14-36); Albumin 4.2 g/dl (3.5-5.0); Alkaline Phosphatase 73 U/L (38-126); Blood Urea Nitrogen 19 mg/dl (7-17); Calcium 9.4 mg/dl (8.4-10.2); Carbon Dioxide 29 mmol/L (22-30); Chloride 105 mmol/L (98-107); Glucose 112 mg/dl (70-99); Magnesium 2.2 mg/dl (1.6-2.3); Potassium 4.6 mmol/L (3.5-5.1); Sodium 142 mmol/L (135-145); Total Bilirubin 1.2 mg/dl (0.2-1.3); Total Protein 6.4 g/dl (6.3-8.2); eGFR > 60.00
[2025-04-22 13:41] VITALS: BMI 27.9
[2025-04-28] VITALS (18 sets, daily range): BP systolic 100–138; BP diastolic 59–117; BMI 27.9
[2025-04-28 08:39] LABS: ACT-LR - POC 348 Seconds (116-155)
[2025-04-28 08:59] LABS: ACT-LR - POC 345 Seconds (116-155)
[2025-04-28 09:21] LABS: ACT-LR - POC 250 Seconds (116-155)
[2025-04-28 09:23] LABS: ACT-LR - POC 256 Seconds (116-155)
--- NOTE | 2025-04-28 09:46 | ITS.CL.ABL ---
[employer] Reading Teacher - Ablation
Ablation
Procedure Report:
ELECTROPHYSIOLOGIC STUDY AND POSSIBLE ABLATION
DATE: April 28, 2025
Primary Care Provider: Sathish Chapman DO
Primary Supervisor Inspecting: Thompson Stewart DO
INDICATION:
Symptomatic Atrial Fibrillation.
Persistent
HISTORY: See H and P.
Symptomatic AF, poorly controlled with attempted medical therapy
Symptomatic persistent atrial fibrillation associated with heart failure with reduced ejection fraction.
Hospitalized December 12 to December 23 2024 with atrial fibrillation rapid ventricular response and decompensated congestive heart failure, heart failure with reduced ejection fraction.
Echocardiogram found worsening of LV function to EF of 15% with severe MR and TR (previous echo : EF 30-35%, mod MR, mild-mod TR).� There was concern that her� mitral regurgitation could be contributing to her A-fib and heart failure. Toprol
was uptitrated.� �A-fib was difficult to rate control and she was loaded with oral amiodarone with plan for CRISTIAN/CV.� A CRISTIAN 12/17/2024 showed left atrial appendage thrombus and therefore cardioversion was not performed.� Amiodarone was stopped with
plan to rate control alone.�
She remained on apixaban 5 mg BID. Transesophageal echocardiogram March 02, 2025 found no left atrial appendage thrombus. In atrial fibrillation there is global hypokinesis with ejection fraction of 20% as well as moderate to severe mitral
regurgitation and moderate to severe tricuspid regurgitation.
HAS-BLED: 2
Age
Abnormal Liver Function
CHADSVASc: 3
CHF, HFrEF, LVEF 20% NYHA Class 3
Age
F Gender
PRESENTING RHYTHM: AF
HISTORY: See H and P.
Symptomatic AF, poorly controlled with attempted medical therapy.
ANTICOAGULATION: apixaban
'TIME-OUT': called and confirmed.
SEDATION/ANESTHESIA: provided via the anesthesia department using general anesthesia.
PROCEDURE:
Ultrasound Guidance with real-time visualization of needle insertion and vessel patency performed by dc for femoral venous Vascular Access.
Under real-time US guidance, the needle was advanced with negative pressure into the vein. The needle was seen entering the vessel lumen with a good return of dark red flow, the syringe was removed, non-pulsatile, dark red blood low was noted and
the wire was passed without difficulty, then the needle was removed. US confirmed the wire was in the vein, not going into an artery,
Images were taken and saved for the patient's permanent record. Imaging findings typical femoral venous anatomy. Direct visualization of needle puncture into the femoral vein was observed and recorded.
A decapolar CS catheter was placed within the CS for mapping and pacing.
The intracardiac ultrasound catheter was positioned in the RA for continuous intracardiac ultrasound imaging.
Heparin bolus and infusion to target ACT at 300 -350 seconds was administered. Transseptal puncture was performed. This entailed advancing a sheath with dilator into the superior vena cava and withdrawing both (monitoring intracardiac ultrasound,
fluoroscopy and tip pressure) with the tip oriented toward the atrial septum. The fossa ovalis was engaged (indicated by sudden displacement of the sheath tip as well as tenting of the fossa seen on intracardiac ultrasound).
The Veracode transseptal system was used. Left atrial catheter position was confirmed by echocardiographic imaging and fluoroscopy followed by RF delivery using the [employer] system resulting in successful LA access with pressure monitoring
demonstrating LA pressure waveforms (LA mean pressure 25 mm Hg). The sheath was advanced over the dilator and positioned in the left atrium.
The Murry Grid multipolar mapping catheter was initially positioned through the transseptal sheath for high density mapping.
Cardioversion resulted in sinus rhythm. However atrial fibrillation rapidly recurred and mapping and ablation was completed in atrial fibrillation.
Geometry and voltage mapping was performed using the Murry multipolar grid catheter. Ensite-X was utilized for three-dimensional electroanatomical mapping.
A 3-D map was created using Ensite-X in Voxel mode. A 3-D reconstructed CT image was compared to the 3-D Navex map to assist in anatomic evaluation, mapping and ablation.
The [employer] PFA catheter and system was used for cardiac ablation. Catheter positioning was guided and confirmed using both I.C.E. and fluoroscopy.
Ablation strategy consisted of PVI. There are 2 individual right sided pulmonary veins, right superior and right inferior. On the left there is a common ostium with early branching into a left superior and left inferior pulmonary vein. Pulsed
electric field energy was delivered to electrically isolate the pulmonary veins.
Additional energy applications/additional ablation sets targeted extra PV contributors to atrial fibrillation.
Targets were identified with electroanatomical voltage mapping finding areas of low voltage and complex fractionated electrograms. These areas can be sites for the formation of rotors which can drive and maintain atrial fibrillation. These areas are
known to be significant contributors to initiation and perpetuation of atrial fibrillation.
Targets for additional PFA ablation included:
LA posterior wall
After ablation of the posterior wall, target remained at the anterior roof and the inferior/ floor of the LA
LA anterior roof and inferior floor lines were completed
At the completion of ablation at the targeted extra PV sites, post ablation mapping finds that the targeted complex fractionated electrograms are eliminated rendering the sites no longer able to contribute to atrial fibrillation. Post ablation high
output pacing at the targeted sites demonstrate lack of capture / exit block.
Post ablation mapping additionally finds that all PVPs were eliminated at each vein demonstrating entrance block. Also pacing around the the circumference of the ostia was performed at 10 ma and 2.0 msec output to assess for exit block. This
demonstrated electrical isolation at each of the pulmonary vein ostia (LSPV, LIPV, RSPV, RIPV).
Programmed electrostimulation including burst atrial pacing as well as delivery of atrial decremental extrastimuli down to atrial ERP failed to induce any sustained arrhythmias.
However, as catheters were being manipulated for removal, a stable atrial flutter at cycle length of 310 ms became evident.
Three-dimensional electroanatomical mapping using the [employer] grid catheter to find a counterclockwise right atrial circuit. This along with entrainment pacing defined counterclockwise right atrial isthmus dependent flutter.
The femoral wave ablation catheter was then utilized for ablation at the cavotricuspid isthmus. First pressures were administered to increase systolic blood pressure to 150 mmHg. Then 200 mg of nitroglycerin intravenously was administered. This
was followed by delivery of pulsed field ablation using the fire wave catheter at approximately a 6�7 o'clock position on the cavotricuspid isthmus. This terminated atrial flutter. A line was completed from the tricuspid annulus down to the IVC.
Differential pacing demonstrated block across the isthmus.
I.C.E. :
Pre-Ablation Post-Ablation
LVEF: 20 % 20 %
WMA: Global global
Pericardial effusion: Trace posterior trace posterior
COMPLICATIONS:
None
SUMMARY:
- Mapping and ablation to isolate the PVs
- Additional AF ablation set after PVI.
LA posterior wall
LA anterior roof line
LA floor line
- Mapping and ablation of second tachycardia
SVT (typical right atrial counterclockwise isthmus dependent atrial flutter)
- 3-D Electroanatomical Mapping
- Intracardiac Ultrasound
- Ultrasound guidance for vascular access
Post ablation, at patient's request I called her son Everette and left a message regarding today's results.
RECOMMENDATIONS:
- Observe in monitored bed.
- Maintain oral anticoagulation.
- Discontinue digoxin
- Office visit is currently scheduled on May 13, [address] Stewart
Copy to:
Sathish Chapman DO
Thompson Stewart DO
[2025-04-28] MEDS: LASIX 80 MG IV (10:32)
--- NOTE | 2025-04-28 11:32 | PTCARENOTE ---
received pt from labor relations or personnel negotiator recovery area. AOx3, no complaints of pain or discomfort. Right groin CDI. SR on tele monitor, VSS. pt educated on expected OOB time and restrictions, verbalized understanding. Oriented to room and unit. Call santana within
reach.
--- NOTE | 2025-04-28 14:08 | CM ---
Reviewed chart. Met with Mrs. Silva to review discharge plans. She states prior to admission she reside alone in a third floor apartment with an elevator. She states prior to admission she was independent with ambulation and adls. She states
she does not have any DME in the home. She states she has a prescription plan with [facility] and uses [facility]. The discharge plan is to return home when medically stable.
[2025-04-28] MEDS: TOPROL XL 50 MG PO (19:56)
[2025-04-28] MEDS: ELIQUIS 5 MG PO (19:56)
[2025-04-28] MEDS: KCL 20 MEQ PO (19:56)
--- NOTE | 2025-04-28 21:00 | PTCARENOTE ---
Received pt at shift change; AAOx3, offers no complaints, states R groin cath site is 'achey' but tolerable. NSR on the monitor, tolerating RA with SpO2 96%. Pt without bed rest restriction, witnessed steady gait to the bathroom. R groin site intact
without visible hematoma, although gauze is saturated with blood, no blood around the gauze collected underneath tegaderm dressing, see post cath flowsheet for details. VSS. Pt updated on POC for the evening, resting comfortably in bed, call santana
within reach.
[2025-04-29 04:41] VITALS: BP 127/86
[2025-04-29 04:43] VITALS: BMI 28.3
[2025-04-29 05:36] LABS: Hematocrit 37.5 % (37.0-47.0); Hemoglobin 12.9 g/dL (12.0-16.0); Mean Corp Hgb Conc. 34.4 g/dL (33.0-37.0); Mean Corpuscular Hgb 35.8 pg (27.0-31.0); Mean Corpuscular Volume 104.2 fL (81.0-99.0); Mean Platelet Volume 11.4 fL (7.4-10.4); Platelet Count 146 10^3/uL (130-400); Red Cell Dist. Width 15.6 % (11.5-14.5); White Blood Cell Count 10.5 10^3/uL (4.8-10.8)
[2025-04-29 06:01] LABS: Blood Urea Nitrogen 31 mg/dl (7-17); Calcium 8.7 mg/dl (8.4-10.2); Carbon Dioxide 25 mmol/L (22-30); Chloride 108 mmol/L (98-107); Estimated Creatinine Clearance 50 ml/min; Glucose 120 mg/dl (70-99); Magnesium 2.1 mg/dl (1.6-2.3); Potassium 4.3 mmol/L (3.5-5.1); Sodium 141 mmol/L (135-145); eGFR 59.86
--- NOTE | 2025-04-29 07:47 | W.PN.CARDCBS ---
Addendum entered and electronically signed by Colin Landaverde MD 04/29/25 12:59:
Patient seen, interviewed and examined by me.
Well-appearing, no acute distress
Regular rate and rhythm with normal S1 and S2, no S3 no S4. There is a grade 1/6 apical holosystolic murmur and no rubs. PMI is normally placed.
Lungs are clear to auscultation bilaterally without wheezes rales or rhonchi.
Abdomen soft nontender nondistended with normoactive bowel sounds
Extremities show trace pretibial edema bilaterally no clubbing or cyanosis.
Neurologic exam is grossly nonfocal.
I reviewed telemetry which demonstrates sinus rhythm with no sustained arrhythmias.
I discussed yesterday's results with her in detail.
Maintain apixaban 5 mg twice daily
Stop digoxin.
No plan for antiarrhythmic drug at this point.
She has diagnosis of hemochromatosis and periodically undergoes phlebotomies, therapeutic. She inquires whether she can still do this.
OK to continue with phlebotomy for hemochromatosis
Outpatient follow-up has already been arranged with Dr. Stewart for on May 13, 2025
Discharge instructions as well as activity restrictions for the next 4 to 5 days have been reviewed with her and all of her questions have been answered.
She stable for discharge to home today
Original Note:
Today's Communication / Plan
-
stable for d/c home today
Impression / Plan
-
Primary Care Provider: Sathish Chapman DO
Primary Furniture Designer: Thompson Stewart DO
74 yo WM with symptomatic AF, poorly controlled with attempted medical therapy and associated with HFrEF 15% with severe MR and TR (previous echo : EF 30-35%, mod MR, mild-mod TR). She was hospitalized 12/12 - 12/23/24 with atrial fibrillation
RVR and decompensated CHF.� There was concern that her� mitral regurgitation could be contributing to her A-fib and heart failure. Toprol was uptitrated.� �A-fib was difficult to rate control and she was loaded with oral amiodarone with plan for
CRISTIAN/CV.� A CRISTIAN 12/17/2024 showed left atrial appendage thrombus and therefore cardioversion was not performed.� Amiodarone was stopped with plan to rate control alone.�She remained on apixaban 5 mg BID. Transesophageal echocardiogram March 02, 2025
found no left atrial appendage thrombus. She presents for ablation.
Impression:
Symptomatic persistent Afib
NICMP
Chronic HFrEF 15%
Severe MR and TR
h/o MIREYA thrombus 11/2024
Hyperlipidemia
Hemochromatosis
Plan:
post PVI, PW, LA roof line and floor line, RA flutter ablation 04/28/25
groins stable
tele SR with occ PVC's and very brief PAT
OAC Eliquis
Stop Digoxin
Decrease metoprolol to 50mg bid
Continue furosemide
She will need f/u Echo in 3 mo to reassess EF after maintaining SR
Activity restrictions reviewed
OK to continue with phlebotomy for hemochromatosis
f/u Dr. Stewart in 2 mo
home today
Progress Note - Furniture Designer
Subjective
Date of Service: April 29, 2025
denies cp, sob, mild irritation in groin site d/t adhesive
Objective
Labs:
04/29/25 05:00
04/29/25 05:00
Labs
Hgb 12.9 g/dL (12.0-16.0) 04/29/25 05:00
Hct 37.5 % (37.0-47.0) 04/29/25 05:00
Plt Count 146 10^3/uL (130-400) D 04/29/25 05:00
PT 15.8 Sec (11.4-14.6) H 04/22/25 08:06
INR 1.21 04/22/25 08:06
Sodium 141 mmol/L (135-145) 04/29/25 05:00
Potassium 4.3 mmol/L (3.5-5.1) 04/29/25 05:00
BUN 31 mg/dl (7-17) H 04/29/25 05:00
Creatinine 1.0 mg/dL (0.6-1.0) 04/29/25 05:00
Glucose 120 mg/dl (70-99) H 04/29/25 05:00
Vital Signs and I&O:
Vital Signs
Temp Pulse Resp BP Pulse Ox
98.4 F 63 16 127/86 97
04/29/25 04:41 04/29/25 06:15 04/29/25 04:41 04/29/25 04:41 04/29/25 04:41
Vital Signs
Temp Pulse Resp BP Pulse Ox
98.4 F 63 16 127/86 97
04/29/25 04:41 04/29/25 06:15 04/29/25 04:41 04/29/25 04:41 04/29/25 04:41
Physical Exam
Physical Exam
NAD, AOX3
S1, S2, RRR, 3/6 ROSANNA at apex
CTAB, non labored, no wheeze
SNTND bsx4
R groin site with old drainage noted on dressing, removed site soft with no drainage
[2025-04-29 08:07] VITALS: BP 107/67
[2025-04-29] MEDS: KCL 20 MEQ PO (08:41)
[2025-04-29] MEDS: LASIX 40 MG PO (08:41)
[2025-04-29] MEDS: ELIQUIS 5 MG PO (08:41)
[2025-04-29] MEDS: TOPROL XL 50 MG PO (08:41)
--- NOTE | 2025-04-29 09:27 | CM ---
Reviewed chart. Met with Mrs. Madison to review discharge plans. She states she is feeling well and maybe able to go home soon. Prior to admission she resides alone in a third floor apartment with an elevator. Prior to admission she was
independent with ambulation and adls. She does not have any DME in the home. She has a prescription plan with [facility] and uses [facility]. The discharge plan is to return home when medically stable
[2025-04-29 10:26] VITALS: BP 136/83
--- NOTE | 2025-04-29 10:50 | W.DS.TRANS ---
Addendum entered and electronically signed by Colin Landaverde MD 04/29/25 12:56:
x
Original Note:
DC Summary - Drug Safety Physician
-
Discharge Instructions:
Sleep Apnea Risk Low
Discharge Diagnosis/Procedures AFib/AFlutter, s/p ablation
Diet Low Cholesterol
Driving Restrictions No driving for 24 hours
Instructions:
Stand-Alone Forms: DC Instructions- Cath/EP Lab
Changes to Home Medications: Yes
Discharge Medications:
DC Medications w/original date entered in [email or web address]
coenzyme Q10 100 mg capsule (CoQ-10) 100 mg PO DAILY 12/12/24
therapeutic multivitamin 1 tab PO DAILY Supplement 12/12/24
vitamin B complex 1 tab PO DAILY Supplement 12/12/24
apixaban 5 mg tablet (Eliquis) 5 mg PO BID Blood clot prevention/tx #60 tabs 12/23/24
potassium chloride 20 mEq tablet,extended release(part/cryst) 20 meq PO BID #60 tabs 12/23/24
cholecalciferol (vitamin D3) 50 mcg (2,000 unit) tablet (Vitamin D3) 50 mcg PO DAILY 04/28/25
furosemide 20 mg tablet 40 mg PO BID AT 0800,1600 Heart Failure 04/28/25
milk thistle 175 mg capsule 175 mg PO DAILY 04/28/25
vitamin A-vitamin C-vit E-min tablet 1 tab PO DAILY 04/28/25
metoprolol succinate 100 mg tablet,extended release 24 hr 50 mg (1/2 x 100 mg) PO BID Arrhythmia #60 tabs 04/29/25
Home Medication Changes
stop digoxin, decrease metoprolol to 50mg bid
Pending Results: No
== END 2025-04-29 11:15 | disposition home or self-care (01) ==
LOC: CATH 05:57
PROVIDERS: Nurse Practitioner; ATTENDING PHYSICIAN Internal Medicine Cardiovascular Disease; FAMILY PHYSICIAN Family Medicine; OTHER PHYSICIAN Nuclear Medicine Nuclear Cardiology
DX: I48.19 Other persistent atrial fibrillation (principal); I48.3 Typical atrial flutter; E78.5 Hyperlipidemia, unspecified; E83.119 Hemochromatosis, unspecified; I08.1 Rheumatic disorders of both mitral and tricuspid valves; I47.10 Supraventricular tachycardia, unspecified; I49.3 Ventricular premature depolarization; I50.22 Chronic systolic (congestive) heart failure; Z79.01 Long term (current) use of anticoagulants; Z79.899 Other long term (current) drug therapy
CPT/HCPCS: C1732; C1894; C1892; 36415; 80048; 80053; 83735; 85025; 85027; 85347; 85610; 86850; 86900; 86901; 93005; 93655; 93656; 93657; C1733; C1766

== ENCOUNTER → 2025-07-12 12:50 | Outpatient (REF) | payer OTHER, SELFPAY | LOC: HWRCS 12:50 | PROVIDERS: ATTENDING PHYSICIAN Nuclear Medicine Nuclear Cardiology; FAMILY PHYSICIAN Family Medicine | DX: I48.19 Other persistent atrial fibrillation (principal); I50.20 Unspecified systolic (congestive) heart failure; I42.8 Other cardiomyopathies; I34.0 Nonrheumatic mitral (valve) insufficiency | CPT/HCPCS: 93306 ==